=== PATIENT | male | born 1950 | race Caucasian/White ===

== ENCOUNTER 2018-06-19 12:32 | Inpatient (IN) | payer MEDICARE ==
[~2018-06-19] VITALS: Ht 175.3 cm; Wt 78.9 kg
[2018-06-19 12:39] VITALS: BP 173/78
[2018-06-19] MEDS ORDERED: ALLOPURINOL 10100 M1 PO (12:49)
[2018-06-19] MEDS ORDERED: SODIUM BICARBO650 M3 PO (12:49)
[2018-06-19 13:09] LABS: ABSOLUTE LYMPHOCYTES 0.4 thou/uL (0.8-5.3); ABSOLUTE MONOCYTES 0.3 thou/uL (0.0-1.2); ABSOLUTE NEUTROPHILS 2.3 thou/uL (1.6-8.1); BASOPHILS 0.2 %; EOSINOPHILS 0.6 %; HEMATOCRIT 32.8 % (42.0-52.0); LYMPHOCYTES 13.9 %; MCH 31.7 pg (26.0-34.0); MCHC 33.6 g/dL (28.0-37.0); MCV 94.3 fL (80.0-100.0); MONOCYTES 9.1 %; MPV 8.3 fl. (7.2-11.1); NUCLEATED RBCS 0 /100WBC; POLYS 76.2 %; RBC 3.48 mil/uL (4.50-6.00); RDW-CV 16.1 % (10.5-14.5)
[2018-06-19 13:14] LABS: PLATELET COUNT* 46 thou/uL (150-400)
[2018-06-19 13:18] LABS: APTT 29.8 Seconds (25.0-31.3); PROTIME 10.1 Seconds (9.20-11.50)
[2018-06-19 13:26] LABS: ANION GAP 5 mmol/L (7-16); BUN 14 mg/dL (7-18); CALCIUM 8.6 mg/dL (8.5-10.1); CHLORIDE 99 mmol/L (98-107); CO2 37 mmol/L (21-32); CREATININE 3.4 mg/dL (0.6-1.3); GLUCOSE 98 mg/dL (70-99); POTASSIUM 4.2 mmol/L (3.5-5.1); SODIUM 141 mmol/L (136-145); TROPONIN-I LEVEL 0.22 ng/mL (<0.06)
[2018-06-19 13:27] LABS: ALKALINE PHOSPHATASE 162 U/L (46-116); LIPASE 340 U/L (73-393); NT-PRO BRAIN NAT PEPTIDE > 35000 pg/mL (<300); SGOT 35 U/L (15-37); SGPT 16 U/L (30-65); TOTAL BILIRUBIN 0.5 mg/dL (<0.1-1.0); TOTAL PROTEIN 6.7 g/dL (6.4-8.2)
[2018-06-19 14:03] LABS: PLATELET ESTIMATE DECREASED
--- NOTE | 2018-06-19 16:04 | EKG ---
[place] [address] ELECTROCARDIOGRAM REPORT Name: ESE TRONCOSO Room: [place] [address] ADM IN [facility]#: [id number] Admission: 06/19/18 Attend Phys: Feliciano Chicas MD Discharge: Date of : 54 Report #: [id number] THIS REPORT FOR: //name// [facility] ED Test Date: 2018-06-19 Test Time: 12:38:28 Pat Name: ESE KARYNA Department: Room: [facility] Gender: M Repairer Helper: [place] : 1950 Requested By: Paolo Martin Order Number: [id number] MD: Cecilio Mohr Measurements Intervals [place] Rate: 82 P: 32 PA: 151 QRS: 1 QRSD: 90 T: -24 QT: 434 QTc: 507 Interpretive Statements Sinus rhythm Nonspecific repol abnormality, inferior leads Prolonged QT interval Baseline wander in lead(s) I,III,aVL No previous ECG available for comparison Electronically Signed On 06-19-2018 16:04:47 SALES REPRESENTATIVE [employer] by Cecilio Mohr [email or web address] <ELECTRONICALLY SIGNED> By: Cecilio Mohr MD, [facility] 06/19/18 1604 1238 1238 Cecilio Mohr MD, [facility] /EPI
[2018-06-19 18:09] LABS: INFLUENZA A ANTIGEN None Detected (None Detect); INFLUENZA B ANTIGEN None Detected (None Detect)
[2018-06-19 23:09] VITALS: BP 155/72
[2018-06-19 23:25] VITALS: BP 166/78
[2018-06-20] MEDS ORDERED: LEVEMIR SUBQ (03:35)
[2018-06-20] MEDS ORDERED: FOLIC ACID1 MG PO (03:35)
[2018-06-20] MEDS ORDERED: FISH OIL 1,001000 M2 PO (03:36)
[2018-06-20] MEDS ORDERED: SYNTHROID50 MCG PO (03:41)
[2018-06-20 04:14] VITALS: BP 188/78
[2018-06-20 05:41] LABS: ABSOLUTE LYMPHOCYTES 0.3 thou/uL (0.8-5.3); ABSOLUTE MONOCYTES 0.1 thou/uL (0.0-1.2); ABSOLUTE NEUTROPHILS 1.9 thou/uL (1.6-8.1); BASOPHILS 0.2 %; EOSINOPHILS 0.2 %; HEMATOCRIT 32.7 % (42.0-52.0); HEMOGLOBIN 10.8 gm/dL (14.0-18.0); LYMPHOCYTES 12.6 %; MCH 31.9 pg (26.0-34.0); MCHC 33.1 g/dL (28.0-37.0); MCV 96.3 fL (80.0-100.0); MONOCYTES 5.7 %; MPV 8.8 fl. (7.2-11.1); NUCLEATED RBCS 0 /100WBC; POLYS 81.3 %; RBC 3.39 mil/uL (4.50-6.00); RDW-CV 16.2 % (10.5-14.5); WBC 2.3 thou/uL (4.0-11.0)
[2018-06-20 06:14] LABS: CALCIUM 8.6 mg/dL (8.5-10.1); POTASSIUM 5.1 mmol/L (3.5-5.1)
[2018-06-20 06:20] LABS: PLATELET COUNT* 43 thou/uL (150-400)
[2018-06-20 06:21] LABS: CREATININE 4.7 mg/dL (0.6-1.3)
[2018-06-20 08:00] VITALS: BP 177/86
--- NOTE | 2018-06-20 09:45 | EKG ---
[place] [address] ELECTROCARDIOGRAM REPORT Name: ESE TRONCOSO Room: [address] IN R.#: [id number] Admission: 06/19/18 Attend Phys: Feliciano Chicas MD Discharge: Date of : 54 Report #: [id number] THIS REPORT FOR: //name// [facility] Test Date: 2018-06-20 Test Time: 08:37:17 Pat Name: ESE KARYNA Department: Room: [facility] Gender: M Natural Foods Clerk: : 1950 Requested By: Mary Adams Order Number: [id number] Blane MD: Cecilio Mohr Measurements Intervals [place] Rate: 82 P: 48 DE: 144 QRS: 0 QRSD: 94 T: -2 QT: 438 QTc: 512 Interpretive Statements Sinus rhythm Borderline T abnormalities, inferior leads Prolonged QT interval Compared to ECG 06/19/2018 12:38:28 no change Electronically Signed On 06-20-2018 9:44:52 PHARMACY DELIVERY DRIVER by Cecilio Mohr [email or web address] <ELECTRONICALLY SIGNED> By: Cecilio Mohr MD, [facility] 06/20/18 0944 0837 0837 Cecilio Mohr MD, [facility] /EPI
[2018-06-20 12:13] VITALS: BP 165/74
--- NOTE | 2018-06-20 14:43 | 2DMMODE ---
[place] [address] 2 D/M-MODE ECHOCARDIOGRAM Name: ESE TRONCOSO Room: [address] IN [facility]#: [id number] Admission: 06/19/18 Attend Phys: Feliciano Chicas, Discharge: Date of : 54 Date of Service: 06/20/18 1442 Report #: [id number] THIS REPORT FOR: //name// APPROVED REPORT Study performed: 06/20/2018 11:21:46 EXAM: Comprehensive 2D, Doppler, and color-flow Echocardiogram Patient Location: In-Patient Room #: 219 Status: routine BSA: 1.95 HR: 87 bpm BP: 177/86 mmHg Rhythm: NSR Other Information Study Quality: Good Indications CAD Elevated Troponin Chest Pain 2D Dimensions IVSd: 12.73 (7-11mm) LVOT Diam: 20.78 (18-24mm) LVDd: 49.92 mm PWd: 11.90 (7-11mm) Ascending Ao: 35.73 (22-36mm) LVDs: 30.00 (25-40mm) Aortic Root: 32.70 mm Volumes Left Atrial Volume (Systole) LA ESV Index: 39.40 mL/m2 Aortic Valve AoV Peak Eknneth.: 1.69 m/s AO Peak Gr.: 11.38 mmHg LVOT Max P.31 mmHg AO Mean Gr.: 5.99 mmHg LVOT Mean P.08 mmHg LVOT Max V: 1.26 m/s AO V2 VTI: 35.28 cm LVOT Mean V: 0.81 m/s LIONEL (VTI): 2.60 cm2 LVOT V1 VTI: 27.02 cm Mitral Valve E/A Ratio: 1.11 [place] [address] 2 D/M-MODE ECHOCARDIOGRAM Name: ESE TRONCOSO Room: [address] IN [facility]#: [id number] Admission: 06/19/18 Attend Phys: Feliciano Chicas, Discharge: Date of : 54 Date of Service: 06/20/18 1442 Report #: [id number] MV Decel. Time: 176.12 ms MV E Max Kenneth.: 1.62 m/s MV PHT: 51.07 ms MVA (PHT): 4.31 cm2 TDI E/Lateral E': 13.50 E/Medial E': 23.14 Medial E' Kenneth.: 0.07 m/s Lateral E' Kenneth.: 0.12 m/s Pulmonary Valve PV Peak Kenneth.: 1.23 m/s PV Peak Gr.: 6.01 mmHg Tricuspid Valve RAP Estimate: 5.00 mmHg TR Peak Gr.: 31.34 mmHg RVSP: 36.00 mmHg PA Pressure: 36.00 mmHg Left Ventricle The left ventricle is normal size. There is normal LV segmental wall motion. Mild concentric left ventricular hypertrophy. Left ventricular systolic function is normal. LVEF is 55-60%. Transmitral Doppler flow pattern suggests impaired LV relaxation. Right Ventricle The right ventricle is normal size. The right ventricular systolic function is normal. Atria Left atrium is mildly dilated. Right atrium is mildly dilated. Aortic Valve The aortic valve is normal in structure. No aortic regurgitation is present. There is no aortic valvular stenosis. Mitral Valve The mitral valve is normal in structure. There is no mitral valve regurgitation noted. No evidence of mitral valve stenosis. Tricuspid Valve The tricuspid valve is normal in structure. Trace tricuspid regurgitation. Mild pulmonary hypertension. Pulmonic Valve The pulmonary valve is normal [place] [address] 2 D/M-MODE ECHOCARDIOGRAM Name: ESE TRONCOSO Room: [address]#: [id number] Admission: 06/19/18 Attend Phys: Feliciano Chicas, Discharge: Date of : 54 Date of Service: 06/20/18 1442 Report #: [id number] regurgitation. Great Vessels The aortic root is normal in size. IVC is normal in size and collapses >50% with inspiration. Pericardium There is no pericardial effusion. <Conclusion> The left ventricle is normal size. Mild concentric left ventricular hypertrophy. Left ventricular systolic function is normal. LVEF is 55-60%. Left atrium is mildly dilated. Right atrium is mildly dilated. Trace tricuspid regurgitation. Mild pulmonary hypertension. IVC is normal in size and collapses >50% with inspiration. <ELECTRONICALLY SIGNED> By: Jovanny Hester MD, FACC 06/20/18 1442 144 1442 Jovanny Hester MD, FACC /INF
[2018-06-20 16:07] LABS: HEPATITIS B SURFACE AG Negative (Negative)
[2018-06-20 16:30] VITALS: BP 124/58
[2018-06-20 20:31] VITALS: BP 110/50
[2018-06-21] VITALS: BP 141/67
[2018-06-21 04:00] VITALS: BP 154/76
[2018-06-21 08:00] VITALS: BP 155/65
[2018-06-21 12:38] LABS: HEMATOCRIT 30.9 % (42.0-52.0); HEMOGLOBIN 10.6 gm/dL (14.0-18.0); MCH 32.3 pg (26.0-34.0); MCHC 34.4 g/dL (28.0-37.0); MCV 93.8 fL (80.0-100.0); MPV 8.1 fl. (7.2-11.1); NUCLEATED RBCS 0 /100WBC; PLATELET COUNT* 73 thou/uL (150-400); RBC 3.29 mil/uL (4.50-6.00); RDW-CV 16.1 % (10.5-14.5)
[2018-06-21 13:15] VITALS: BP 139/70
[2018-06-21 13:19] LABS: ABSOLUTE LYMPHOCYTES 0.9 thou/uL (0.8-5.3); ABSOLUTE MONOCYTES 0.2 thou/uL (0.0-1.2); ABSOLUTE NEUTROPHILS 3.9 thou/uL (1.6-8.1); ATYPICAL LYMPHS 1 %
[2018-06-21 13:20] LABS: PLATELET ESTIMATE DECREASED
--- NOTE | 2018-06-21 15:44 | CON ---
[address] [address] CONSULTATION Name: ESE TRONCOSO Room: [address] IN .[place].#: [id number] Admission: 06/19/18 Attend Phys: Feliciano Chicas MD Discharge: Date of : 54 Report #: [id number] THIS REPORT FOR: //name// CC: Feliciano Dasilva DATE OF SERVICE: 06/20/2018 HEMATOLOGY CONSULTATION REQUESTING PHYSICIAN: Feliciano Chicas M.D. REASON FOR CONSULTATION: Thrombocytopenia. HISTORY OF PRESENT ILLNESS: A 67-year-old male who has been admitted to the hospital because of weakness and fall with shortness of breath and chest pain. He has end-stage renal disease, diabetic. He had common cold symptoms including cough and runny nose. He denies any high fevers. Upon evaluation, his platelet count was 46,000. However, the patient reported that he was seen by Dr. Kelly, diesel locomotive firer, 3 weeks ago and his platelet count has been low even before. I reviewed his hemoglobin, which was around his baseline, which was around 10. The patient denies any change in his urine or diarrhea. He denies any seizure-like activity. No abdominal pain. REVIEW OF SYSTEMS: All systems reviewed; it was negative, except the above. PAST MEDICAL HISTORY: Significant for diabetes mellitus and end-stage renal disease, on dialysis. MEDICATIONS: Per admission list. ALLERGIES: PENICILLIN. SOCIAL HISTORY: No smoking, no alcohol abuse and no drug abuse. FAMILY HISTORY: Noncontributory. PHYSICAL EXAMINATION: VITAL SIGNS: Today, temperature 36.5, pulse 83, respirations 15, blood pressure is 177/86 and saturation is 99% on 2 liters. GENERAL: The patient was sitting in chair, was not in acute distress. LUNGS: Clear to auscultation bilaterally. HEART: Regular rate and rhythm. S1, S2 within normal limits. ABDOMEN: Soft, nontender and nondistended. Bowel sounds positive. EXTREMITIES: No edema, no [place] [address] CONSULTATION Name: ESE TRONCOSO Room: [address]#: [id number] Admission: 06/19/18 Attend Phys: Feliciano Chicas MD Discharge: Date of : 54 Report #: [id number] LABORATORY DATA: Today, WBC 2.3, hemoglobin 10.8 and platelet count 43,000. RBC morphology was normal. PT was 10.1, PTT 29.8. Creatinine is 4.7. ASSESSMENT AND PLAN: A 67-year-old male who is being evaluated because of unexplained thrombocytopenia. I would like to obtain his most recent labs around 3 weeks ago when he saw Dr. Kelly at the same time. The patient does not have any active bleeding right now. We will obtain peripheral blood smear, DIC profile, hemolysis lab including LDH, haptoglobin and retic count. The last time he had B12 and folate level back in 2004; we will obtain these levels also. We will monitor the patient very closely. The etiology could be related to viral infection. <ELECTRONICALLY SIGNED> By: María Billings MD 06/21/18 1544 0850 2212María Billings MD /nt
[2018-06-21] MEDS ORDERED: LEVAQUIN 500 M500 M2 PO (15:58)
[2018-06-21] MEDS ORDERED: NORCO 5-325 TA1 EACH PO (15:59)
[2018-06-21] MEDS ORDERED: PREDNISONE 10 M10 MG PO (16:00)
[2018-06-21] MEDS ORDERED: PROTONIX40 M1 PO (16:02)
[2018-06-21 16:04] VITALS: BP 139/70
[2018-06-21 16:49] VITALS: BP 117/45
--- NOTE | 2018-06-22 10:56 | CON ---
[address] [address] CONSULTATION Name: ESE TRONCOSO Room: [address]#: [id number] Admission: 06/19/18 Attend Phys: Feliciano Chicas MD Discharge: 06/21/18 Date of : 54 Report #: [id number] THIS REPORT FOR: //name// CC: Feliciano Dasilva DATE OF SERVICE: 06/20/2018 CONSULTING PHYSICIAN: Feliciano Chicas MD. REASON FOR CONSULTATION: End-stage kidney disease. HISTORY OF PRESENT ILLNESS: A 67-year-old gentleman with history of end-stage kidney disease on hemodialysis Tuesday, Tuesday and Tuesday at [facility] admitted with chest pain, some dyspnea and elevated troponin. Currently, has no complaints, appears to be comfortable, tells me his dialysis went well yesterday. He is currently being evaluated by Cardiology and also by Hematology/Oncology for thrombocytopenia/leukopenia. REVIEW OF SYSTEMS: Constitutional, psych, heme, eyes, ENT, respiratory, cardiac, GI, , endocrine, all negative except as documented above. PAST MEDICAL HISTORY: Diabetes, depression, end-stage kidney disease. SOCIAL HISTORY: No tobacco. FAMILY HISTORY: Not pertinent in this 67-year-old gentleman. CURRENT MEDICATIONS: Reviewed. PHYSICAL EXAMINATION: VITAL SIGNS: Blood pressure 177/86, pulse 83, respirations 15, temperature 36.5. GENERAL: No acute distress. EYES: Extraocular movements intact. EARS: Externally normal. CARDIOVASCULAR: Regular rate. LUNGS: No crackles. ABDOMEN: Soft. MUSCULOSKELETAL: Nontender. PSYCHIATRIC: Awake, alert. LABORATORY DATA: White cell count 2.3, hemoglobin 10.8, platelets 43. Sodium 142, potassium 5.1, chloride 101, bicarbonate 34, BUN 26, creatinine 4.7, glucose 196, calcium 8.6[place] [address] CONSULTATION Name: KARYNAESE L Room: [address]#: [id number] Admission: 06/19/18 Attend Phys: Feliciano Chicas MD Discharge: 06/21/18 Date of : 54 Report #: [id number] ASSESSMENT: 1. End-stage kidney disease, hemodialysis Tuesday, Tuesday and Tuesday at [facility]. 2. Thrombocytopenia. Hematology is following. 3. Insulin-dependent diabetes. 4. Metabolic acidosis, on sodium bicarbonate as an outpatient. 5. Gout, on allopurinol as an outpatient. 6. Hypertension. 7. Pneumonia, on IV antibiotics. 8. Hypothyroidism. PLAN: 1. No acute indications for dialysis today. We will plan dialysis tomorrow. 2. Cardiology has started Toprol for the elevated blood pressure. 3. Continue sodium bicarbonate. 4. We will follow for dialysis needs. 5. Dialysis tomorrow. Thank you for requesting my opinion in the care and management of this patient. <ELECTRONICALLY SIGNED> By: Sherry Pressley MD 06/22/18 1056 1152 0026Abihira Pressley MD /nt
== END 2018-06-21 16:15 | disposition home or self-care (01) | DRG 871 ==
LOC: M.ERS 12:32 → M.2W 14:44 → M.TBA-ER 14:44 → M.2W 23:08 → M.TBA-ER 06-20 08:25 → M.2W 06-20 08:25
PROVIDERS: Emergency Medicine Emergency Medical Services; Internal Medicine; ADMIT Internal Medicine
DX: A41.9 Sepsis, unspecified organism (principal); N18.6 End stage renal disease; J96.91 Respiratory failure, unspecified with hypoxia; J15.6 Pneumonia due to other Gram-negative bacteria; E87.2 Acidosis; D69.6 Thrombocytopenia, unspecified; E11.22 Type 2 diabetes mellitus with diabetic chronic kidney disease; M10.9 Gout, unspecified; E03.9 Hypothyroidism, unspecified; F32.9 Major depressive disorder, single episode, unspecified; S20.219A Contusion of unspecified front wall of thorax, initial encounter; X58.XXXA Exposure to other specified factors, initial encounter; Y93.89 Activity, other specified; Y92.89 Other specified places as the place of occurrence of the external cause; Y99.8 Other external cause status; Z99.2 Dependence on renal dialysis; Z79.899 Other long term (current) drug therapy; Z88.0 Allergy status to penicillin

== ENCOUNTER 2018-09-03 21:01 | Inpatient (IN) | payer MEDICARE ==
[~2018-09-03] VITALS: Ht 177.8 cm; Wt 78.0 kg
[~2018-09-03 21:01] MED LIST: ALLOPURINOL 10100 M1 PO; FISH OIL 1,001000 M2 PO; FOLIC ACID1 MG PO; LEVAQUIN 500 M500 M2 PO; LEVEMIR SUBQ; NORCO 5-325 TA1 EACH PO; PREDNISONE 10 M10 MG PO; PROTONIX40 M1 PO; SODIUM BICARBO650 M3 PO; SYNTHROID50 MCG PO
[2018-09-03 21:03] VITALS: BP 81/37
[2018-09-03 21:31] LABS: HEMATOCRIT 31.9 % (42.0-52.0); HEMOGLOBIN 10.7 gm/dL (14.0-18.0); MCH 33.8 pg (26.0-34.0); MCHC 33.5 g/dL (28.0-37.0); MCV 100.9 fL (80.0-100.0); MPV 9.4 fl. (7.2-11.1); NUCLEATED RBCS 0 /100WBC; PLATELET COUNT* 96 thou/uL (150-400); RBC 3.16 mil/uL (4.50-6.00); RDW-CV 16.5 % (10.5-14.5); WBC 7.2 thou/uL (4.0-11.0)
[2018-09-03] MEDS ORDERED: KLONOPIN0.5 MG PO (21:31)
[2018-09-03] MEDS ORDERED: VITAMIN D2000 UNIT PO (21:33)
[2018-09-03] MEDS ORDERED: ALLOPURINOL 10100 M2 PO (21:33)
[2018-09-03] MEDS ORDERED: VALIUM5 MG PO (21:34)
[2018-09-03] MEDS ORDERED: B12INJ IM (21:34)
[2018-09-03] MEDS ORDERED: ROPINIROLE HCL0.5 MG PO (21:35)
[2018-09-03] MEDS ORDERED: FOSRENOL500 MG PO (21:35)
[2018-09-03 21:36] LABS: ANION GAP 17 mmol/L (7-16); BUN 55 mg/dL (7-18); CHLORIDE 97 mmol/L (98-107); CO2 23 mmol/L (21-32); CREATININE 8.1 mg/dL (0.6-1.3); GLUCOSE 230 mg/dL (70-99); SODIUM 137 mmol/L (136-145)
[2018-09-03] MEDS ORDERED: ZOLOFT50 MG PO (21:36)
[2018-09-03] MEDS ORDERED: TUMS PO (21:36)
[2018-09-03] MEDS ORDERED: LANTHANUM CAR1000 MG PO (21:36)
[2018-09-03 21:37] LABS: APTT 28.7 Seconds (25.0-31.3); INR 1.1; PROTIME 10.8 Seconds (9.20-11.50)
[2018-09-03] MEDS ORDERED: HYDRALAZINE 10M10 MG PO (21:37)
[2018-09-03 21:39] LABS: POTASSIUM 7.3 mmol/L (3.5-5.1)
[2018-09-03 21:45] LABS: ALBUMIN 3.2 g/dL (3.4-5.0); ALKALINE PHOSPHATASE 331 U/L (46-116); LIPASE 407 U/L (73-393); SGOT 50 U/L (15-37); SGPT 54 U/L (30-65); TOTAL BILIRUBIN 1.2 mg/dL (<0.1-1.0); TROPONIN-I LEVEL <0.06 ng/mL (<0.06)
[2018-09-03 21:49] LABS: CALCIUM 8.4 mg/dL (8.5-10.1)
[2018-09-03 22:27] LABS: ABSOLUTE EOSINOPHILS 0.1 thou/uL (0.0-0.7); ABSOLUTE LYMPHOCYTES 0.4 thou/uL (0.8-5.3); ABSOLUTE MONOCYTES 0.3 thou/uL (0.0-1.2); ABSOLUTE NEUTROPHILS 6.5 thou/uL (1.6-8.1); METAMYELOCYTES 1 %
[2018-09-03 22:28] LABS: ANISOCYTOSIS 1+; GIANT PLATELETS OCCASIONAL; PLATELET ESTIMATE DECREASED
[2018-09-03 22:29] LABS: POLYCHROMASIA 1+
[2018-09-03 23:02] VITALS: BP 61/29
[2018-09-03 23:07] VITALS: BP 206/102
--- NOTE | 2018-09-03 23:11 | NUR ---
SEE CODE BLUE SHEET.
--- NOTE | 2018-09-03 23:11 | NUR ---
WAS ASSISTING PT WITH CLEANING UP AFTER USING THE BEDSIDE COMMODE. CALLED OUT TO NURSE, PT WAS LAYING ON THE BED, UNRESPONSIVE, CODE WAS CALLED. CHEST COMPRESSIONS STARTED
[2018-09-03 23:20] LABS: ABSOLUTE BASOPHILS 0.1 thou/uL (0.0-0.2); ABSOLUTE LYMPHOCYTES 1.2 thou/uL (0.8-5.3); ABSOLUTE MONOCYTES 0.9 thou/uL (0.0-1.2); ABSOLUTE NEUTROPHILS 7.2 thou/uL (1.6-8.1); BASOPHILS 0.8 %; EOSINOPHILS 0.4 %; HEMATOCRIT 33.4 % (42.0-52.0); HEMOGLOBIN 10.9 gm/dL (14.0-18.0); LYMPHOCYTES 13.2 %; MCH 33.8 pg (26.0-34.0); MCHC 32.6 g/dL (28.0-37.0); MCV 103.6 fL (80.0-100.0); MPV 9.5 fl. (7.2-11.1); NUCLEATED RBCS 0 /100WBC; PLATELET COUNT* 103 thou/uL (150-400); POLYS 76.6 %; RBC 3.23 mil/uL (4.50-6.00); RDW-CV 17.1 % (10.5-14.5); WBC 9.5 thou/uL (4.0-11.0)
[2018-09-03 23:31] LABS: CALCIUM 8.5 mg/dL (8.5-10.1); CREATININE 7.9 mg/dL (0.6-1.3)
[2018-09-03 23:32] LABS: POTASSIUM 7.3 mmol/L (3.5-5.1)
[2018-09-03 23:40] VITALS: BP 66/35
[2018-09-03 23:45] VITALS: BP 79/43
[2018-09-04] VITALS (62 sets, daily range): BP systolic 56–196; BP diastolic 33–98
[2018-09-04 00:12] LABS: BE -13.7 mmol/L (-2 to +3); PO2 113.3 mmHg (75.0-100.0)
[2018-09-04 00:19] LABS: PCO2 50.7 mmHg (35.0-45.0); pH 7.104 (7.340-7.450)
[2018-09-04 05:51] LABS: ABSOLUTE LYMPHOCYTES 0.2 thou/uL (0.8-5.3); ABSOLUTE MONOCYTES 0.5 thou/uL (0.0-1.2); ABSOLUTE NEUTROPHILS 4.2 thou/uL (1.6-8.1); BASOPHILS 0.4 %; EOSINOPHILS 0.2 %; HEMATOCRIT 26.9 % (42.0-52.0); HEMOGLOBIN 9.3 gm/dL (14.0-18.0); LYMPHOCYTES 4.2 %; MCH 34.2 pg (26.0-34.0); MCHC 34.4 g/dL (28.0-37.0); MCV 99.2 fL (80.0-100.0); MONOCYTES 10.4 %; MPV 8.6 fl. (7.2-11.1); NUCLEATED RBCS 0 /100WBC; PLATELET COUNT* 71 thou/uL (150-400); POLYS 84.8 %; RBC 2.72 mil/uL (4.50-6.00); RDW-CV 16.2 % (10.5-14.5); WBC 4.9 thou/uL (4.0-11.0)
[2018-09-04 06:12] LABS: APTT 31.7 Seconds (25.0-31.3); INR 1.1; PROTIME 11.7 Seconds (9.20-11.50)
[2018-09-04 06:26] LABS: CK-MB MASS 17.8 ng/mL (<0.5-3.6); MAGNESIUM 1.8 mg/dL (1.8-2.4); PHOSPHORUS* 5.7 mg/dL (2.5-4.9)
[2018-09-04 06:30] LABS: POTASSIUM 3.6 mmol/L (3.5-5.1)
[2018-09-04 06:32] LABS: TROPONIN-I LEVEL 2.89 ng/mL (<0.06)
--- NOTE | 2018-09-04 06:39 | NUR ---
ASSESSMENTS CHARTED. PATIENT ARRIVED ON UNIT FROM ED AT 2245. UPON ARRIVAL, PATIENT LOST PULSES AND ENTERED V TACH. PATIENT CODED AND COMPRESSIONS STARTED, SEE CODE SHEET FOR DETAILS. CODE ICE PROTOCOL INITIATED. MONITORS APPPLIED AND ALARMS SET. TRIVEDI SWITCHED TO TRIVEDI TEMP PROBE. COOLING DEVICE PLACED AND PATIENT COOLED TO 89.5 DEGREES. PATIENT BLOOD PRESSURES AND HEART RATE HAVE BEEN EXTREMELY LABILE. CURRENTLY TITRATING SEDATION AND PRESSORS TO KEEP HEMODYNAMIC STABILITY. PATIENT UNDERWENT DIALYSIS DURING SHIFT WITH NO FLUID TAKEN OFF. AWAITING LABS TO RETURN WITH UPDATED CHEMISTRY LEVELS. ON ARRIVAL POTASSIUM LEVEL WAS 7.3. CONSULTED WITH NEPHROLOGY, CARDIOLOGY, AND PULMONARY. ALL CONSULTS WILL SEE PATIENT DURING DAY SHIFT ROUTINE. WILL CONTINUE TO MONITOR
[2018-09-04 09:35] LABS: BE 1.5 mmol/L (-2 to +3); pH 7.479 (7.340-7.450)
[2018-09-04 09:40] LABS: PO2 197.4 mmHg (75.0-100.0)
--- NOTE | 2018-09-04 10:59 | NUR ---
Nutrition: Consult received for "other." Pt admitted in cardiac arrest, will rewarm tonight. Wt: 180#. H/o DM, HD. Had dialysis. Labs: BG 200s, BUN 27, cr 4, albumin 3.2. NPO status. Will follow POC. Will make nutrition recs as needed. GOAL: Renal diet once able. Will follow up 09/06/18.
--- NOTE | 2018-09-04 11:43 | EKG ---
[place] [address] ELECTROCARDIOGRAM REPORT Name: ESE TRONCOSO Room: [address] ADM IN .R.#: [id number] Admission: 09/03/18 Attend Phys: Nathalie Baird MD Discharge: Date of : 54 Report #: [id number] THIS REPORT FOR: //name// [facility] ED Test Date: 2018-09-03 Test Time: 21:04:35 Pat Name: ESE TRONCOSO Department: Room: [facility] Gender: M Production Clerk: Saima ONTIVEROS : 1950 Requested By: Gabe Fraknlin Order Number: [id number] MD: Cecilio Mohr Measurements Intervals [place] Rate: 90 P: 51 CT: 165 QRS: 12 QRSD: 112 T: 81 QT: 400 QTc: 490 Interpretive Statements Sinus rhythm Borderline intraventricular conduction delay Repol abnrm suggests ischemia, anterolateral Compared to ECG 06/20/2018 08:37:17 Early repolarization now present Possible ischemia now present T-wave abnormality no longer present Prolonged QT interval no longer present Electronically Signed On 09-04-2018 11:42:53 CDT by Cecilio Mohr [email or web address] <ELECTRONICALLY SIGNED> By: Cecilio Mohr MD, FACC 09/04/18 1142 03 03 Cecilio Mohr MD, FAC /EPI
[2018-09-04 11:48] LABS: URINE BILIRUBIN NEGATIVE (Negative); URINE BLOOD 3+ (Negative); URINE CLARITY CLEAR; URINE COLOR YELLOW; URINE GLUCOSE-RANDOM 2+ (Negative); URINE KETONES NEGATIVE (Negative); URINE LEUKOCYTES-REFLEX NEGATIVE (Negative); URINE NITRITE-REFLEX NEGATIVE (Negative); URINE PROTEIN 3+ (Negative); URINE SPECIFIC GRAVITY 1.015 (1.005-1.030); URINE UROBILINOGEN 0.2 E.U./dl (0.2-1.0)
[2018-09-04 11:52] LABS: ABSOLUTE LYMPHOCYTES 0.5 thou/uL (0.8-5.3); ABSOLUTE MONOCYTES 0.4 thou/uL (0.0-1.2); ABSOLUTE NEUTROPHILS 3.2 thou/uL (1.6-8.1); BASOPHILS 0.5 %; EOSINOPHILS 0.7 %; HEMATOCRIT 28.1 % (42.0-52.0); HEMOGLOBIN 9.7 gm/dL (14.0-18.0); LYMPHOCYTES 11.2 %; MCHC 34.6 g/dL (28.0-37.0); MCV 98.4 fL (80.0-100.0); MONOCYTES 9.5 %; MPV 8.6 fl. (7.2-11.1); NUCLEATED RBCS 0 /100WBC; PLATELET COUNT* 86 thou/uL (150-400); POLYS 78.1 %; RBC 2.86 mil/uL (4.50-6.00); RDW-CV 16.1 % (10.5-14.5); WBC 4.1 thou/uL (4.0-11.0)
[2018-09-04 11:57] LABS: BACTERIA-REFLEX 1-9 Few /HPF (None Seen); CASTS None Seen /LPF (None Seen); CRYSTALS None Seen /LPF (None Seen); MUCUS 4-6 Moderate strn/LPF (None Seen); SQUAMOUS 0-3 Few /LPF (0-3); URINE WBC-REFLEX 0-5 Rare /HPF (0-5)
[2018-09-04 12:12] LABS: CREATININE 4.4 mg/dL (0.6-1.3); MAGNESIUM 1.8 mg/dL (1.8-2.4); PHOSPHORUS* 5.6 mg/dL (2.5-4.9); POTASSIUM 3.8 mmol/L (3.5-5.1)
[2018-09-04 12:20] LABS: INR 1.2
[2018-09-04 12:23] LABS: TROPONIN-I LEVEL 4.79 ng/mL (<0.06)
--- NOTE | 2018-09-04 13:14 | NUR ---
PATIENT REMAINS ON VENT BP LABILE LEVOPHED TITRATED FROM ONE TO 3 MCG/KG PER MIN. APPEARS COMFORTYABLE ON PROPOFOL AND FENTANYL GTT. COOLING ACHIEVED. PT PRODUCING SCANT YELLOW URINE.
[2018-09-04 14:09] LABS: HEPATITIS B SURFACE AG Negative (Negative)
--- NOTE | 2018-09-04 16:24 | NUR ---
WOUND NURSE: PER STAFF NURSE, WOUND CONSULT TRIGGERED BY LOW DIONICIO SCALE. NO WOUNDS TO ADDRESS. PATIENT NOT ASSESSED BY THIS NURSE A RESULT.
--- NOTE | 2018-09-04 18:51 | NUR ---
PATIENT REMAINS ON VENT LEVOPHED LEFT AT 2 MCG BP LABILE. NO BLEEDING NOTED PHILLIP AT BEDSIDE. AWAITING RECORDS FROM [facility]. DPOA COPY FROM DR OFFICE OBTAINED. REPORT GIVEN TO KHURRAM RUTLEDGE.
[2018-09-04 23:32] LABS: ABSOLUTE LYMPHOCYTES 0.6 thou/uL (0.8-5.3); ABSOLUTE MONOCYTES 0.4 thou/uL (0.0-1.2); ABSOLUTE NEUTROPHILS 2.4 thou/uL (1.6-8.1); BASOPHILS 0.8 %; EOSINOPHILS 0.8 %; HEMATOCRIT 29.3 % (42.0-52.0); HEMOGLOBIN 10.1 gm/dL (14.0-18.0); LYMPHOCYTES 16.2 %; MCHC 34.6 g/dL (28.0-37.0); MCV 98.2 fL (80.0-100.0); MONOCYTES 10.7 %; MPV 9.1 fl. (7.2-11.1); NUCLEATED RBCS 0 /100WBC; PLATELET COUNT* 81 thou/uL (150-400); POLYS 71.5 %; RBC 2.99 mil/uL (4.50-6.00); WBC 3.4 thou/uL (4.0-11.0)
[2018-09-04 23:50] LABS: APTT 32.7 Seconds (25.0-31.3); INR 1.2; PROTIME 12.5 Seconds (9.20-11.50)
[2018-09-04 23:56] LABS: CALCIUM 8.5 mg/dL (8.5-10.1); CREATININE 4.7 mg/dL (0.6-1.3); MAGNESIUM 1.7 mg/dL (1.8-2.4); PHOSPHORUS* 5.9 mg/dL (2.5-4.9); POTASSIUM 4.6 mmol/L (3.5-5.1)
[2018-09-05] VITALS (65 sets, daily range): BP systolic 50–193; BP diastolic 30–80
[2018-09-05 04:48] LABS: BE 0.9 mmol/L (-2 to +3); PCO2 38.3 mmHg (35.0-45.0); pH 7.434 (7.340-7.450)
[2018-09-05 04:52] LABS: PO2 166.5 mmHg (75.0-100.0)
[2018-09-05 05:22] LABS: HEMATOCRIT 30.6 % (42.0-52.0); HEMOGLOBIN 10.4 gm/dL (14.0-18.0); MCH 33.3 pg (26.0-34.0); MCHC 33.9 g/dL (28.0-37.0); MCV 98.2 fL (80.0-100.0); NUCLEATED RBCS 0 /100WBC; PLATELET COUNT* 105 thou/uL (150-400); RBC 3.11 mil/uL (4.50-6.00); RDW-CV 16.6 % (10.5-14.5); WBC 4.1 thou/uL (4.0-11.0)
[2018-09-05 05:38] LABS: ANION GAP 10 mmol/L (7-16); BUN 33 mg/dL (7-18); CHLORIDE 98 mmol/L (98-107); CHOLESTEROL 102 mg/dL (<200); CO2 27 mmol/L (21-32); GLUCOSE 146 mg/dL (70-99); HDL CHOLESTEROL 9 mg/dL (>40); LDL CHOLESTEROL 30 mg/dL (<100); POTASSIUM 4.5 mmol/L (3.5-5.1); SODIUM 135 mmol/L (136-145); TC:HDL 11.3 Ratio (Not establshd); TRIGLYCERIDE 318 mg/dL (<150); VLDL 64 mg/dL (<40)
[2018-09-05 05:58] LABS: SERUM ASSESSMENT Slight Lipemia
[2018-09-05 06:52] LABS: ABSOLUTE LYMPHOCYTES 0.7 thou/uL (0.8-5.3); ABSOLUTE NEUTROPHILS 3.4 thou/uL (1.6-8.1); ATYPICAL LYMPHS 8 %; MYELOCYTES 1 %; PLATELET ESTIMATE ADEQUATE
--- NOTE | 2018-09-05 06:57 | NUR ---
PT REMAINS STABLE ON VENT. REWARMING INITIATED AT 2330, CURRENT CORE TEMP 96.8F. TEMP LABILE DURING REWARMING, RISING AND FALLING BY 1-2 DEGREES WITHIN SHORT PERIODS OF TIME, THEN NOT RESPONDING TO ADJUSTMENTS TO TEMP CONTROL SYSTEM FOR EXTENDED TIMES. BP ALSO LABILE, BOTH IN RESPONSE TO LEVOPHED TITRATION AND WITH NO APPARENT CAUSE. SEDATION TITRATED FOR COMFORT AND VENT EFFICACY. WITH LIGHT SEDATION PT MOVED ALL EXTREMITIES EQUALLY, TRACKED WITH EYES, AND SHOOK HEAD WHEN ASKED IF HE IS IN PAIN. INCONTINENT OF LARGE SOFT BM X1. PT HAS BEEN TURNED Q2HR THROUGHOUT THE NIGHT.
--- NOTE | 2018-09-05 07:24 | CON ---
[facility] [address] [place] [address] CONSULTATION Name: ESE TRONCOSO Room: [address] IN M.R.#: [id number] Admission: 09/03/18 Attend Phys: Nathalie Baird MD Discharge: Date of : 54 Report #: [id number] THIS REPORT FOR: //name// CC: Nathalie Dasilva REQUESTING PHYSICIAN: Feliciano Chicas M.D. REASON FOR CONSULTATION: Acute respiratory failure, status post cardiopulmonary arrest, on ventilator. DISCUSSION: The patient is a 67-year-old man who is a nonsmoker. Based on the information we have here, he does not have any history of any underlying lung disease. He does have a history of end-stage renal disease and is on chronic hemodialysis. He was brought to the Emergency Department following a syncopal episode at home. Notes indicate he has had a significant headache all day with increasing weakness. He has fallen to the ground. EMS was called. According to the notes, he was awake en route. He was seen in the Emergency Department. Labs came back markedly abnormal. He does have a chronic kidney disease and on chronic hemodialysis. His potassium also came back very high. While he was in the Emergency Department, he did have a cardiac arrest with PEA. We have had already been underway for emergent dialysis to be done. He was resuscitated in the ED. He was intubated and also had a central line in place. Subsequently, he was transferred over to the Intensive Care Unit. Does appear once he arrived in the ICU, he arrested again and again was resuscitated. He did receive dialysis. It did help lower his potassium level. At one point, he was on several pressors, was down to just Levophed at the time of my visit this morning. His oxygenation was also adequate. Given the circumstances, also the cooling protocol was started and he was in the process of being cold when I saw him this morning. He is a lifelong nonsmoker. He is on chronic hemodialysis. Does have a history of diabetes mellitus type 2. Had sepsis due to gangrenous cholecystitis, some years back. Did have a cardiopulmonary arrest during that time as well. Subsequently, he did have a cholecystectomy done. SOCIAL HISTORY: He is a nonsmoker. He is . FAMILY HISTORY: Unable to obtain from the patient. REVIEW OF SYSTEMS: Unable to obtain from the patient. PHYSICAL EXAMINATION: GENERAL APPEARANCE: A man who looks stated age. He is currently intubated and sedated. Currently, he is on Levophed and the epinephrine is off. He has the cooling apparatus on. HEENT: Head is normocephalic. Sclerae nonicteric[place] [address] CONSULTATION Name: ESE TRONCOSO Room: [address] IN ..#: [id number] Admission: 09/03/18 Attend Phys: Nathalie Baird MD Discharge: Date of : 54 Report #: [id number] little dry. NECK: Negative for adenopathy. No definite JVDs appreciated. HEART: Tones are distant but appear regular. No S3 is appreciated. LUNGS: Sounds are coarse. He has some rhonchi heard bilaterally. Excursion is equal. No subcutaneous emphysema is noted. ABDOMEN: Soft. No definite hepatosplenomegaly is noted. EXTREMITIES: Has no clubbing. He has a shunt present in his right upper extremity. Lower extremities are negative for any significant edema. SKIN: Somewhat cool. NEUROLOGICAL: Currently, he is unresponsive and sedated. His propofol, Versed and fentanyl going. LABORATORY AND X-RAY FINDINGS: His most recent arterial blood gas this morning, pH was 7.48, pCO2 of 34, pO2 197 and bicarbonate 25 with a saturation of 98%. Blood gases done post-code, pH was 7.10, pCO2 of 51 and pO2 of 113. His bicarbonate was 16. On his initial chemistry on admission here yesterday evening, his potassium was 7.3. This morning it is down to 3.8 (after dialysis). Creatinine last night 8.1, down to 4.4 this morning. Serum bicarbonate down to 21 back up to 26 this morning. Troponin last night was undetectable. This morning up to 4.79. White blood cell count 4100; hemoglobin 9.7; hematocrit 28.1 and platelets 86,000. He did have an echocardiogram done in May of this year. At that time, EF was normal, 55%-60%. Did have mild concentric LVH. Mild pulmonary hypertension. IMPRESSION: 1. Status post cardiopulmonary arrest. Pulseless electrical activity. Have been related to his marked hyperkalemia. Has been successfully resuscitated. Currently, he is on a cooling protocol. 2. End-stage renal disease, on chronic hemodialysis. 3. Thrombocytopenia, noted previously. Etiology not clear. 3. Chronic anemia. May be anemia of chronic disease. 4. Diabetes mellitus. RECOMMENDATIONS: 1. Continue support at this time. I will need to wait and see how the next 24 hours go. Once he is warmed up, we will need to have his mental status assessed. 2. Dialysis per Renal Service. 3. We will continue with empiric antibiotics at this time. 4. We will try to wean off the Versed. Use propofol and fentanyl as needed at this time. P.r.n. paralytics if needed for shivering. <ELECTRONICALLY SIGNED> By: Cate Javed MD 09/05/18 0724 1258 0630Cate Javed MD /nt
--- NOTE | 2018-09-05 08:58 | CON ---
[address] [address] CONSULTATION Name: ESE TRONCOSO Room: [address] IN [facility]#: [id number] Admission: 09/03/18 Attend Phys: Nathalie Baird MD Discharge: Date of : 54 Report #: [id number] THIS REPORT FOR: //name// CC: Nathalie Dasilva DATE OF SERVICE: 09/04/2018 REQUESTING PHYSICIAN: Feliciano Chicas MD. REASON FOR CONSULTATION: Thrombocytopenia. SUBJECTIVE: A 67-year-old male who had past medical history of end-stage renal disease, gout, hypothyroidism, hypertension, who had syncopal episodes and had PEA arrest. The patient resuscitated, intubated and currently on the ventilator with hypothermia protocol. The patient, at this point, is sedated. is at bedside. Hematological consultation has been requested due to thrombocytopenia, which the patient upon admission had a platelet count of 96; however, later today, it was 86. Reviewing his prior records in 05/2018, his platelet counts were 43 and back in 2004, it was 250. Per the nursing staff, there was no evidence of bleeding or oozing from the IV sites. REVIEW OF SYSTEMS: Unable to be obtained. PAST MEDICAL HISTORY: Diabetes, end-stage renal disease, depression, hypothyroidism, hypertension. MEDICATIONS: Per admission list. ALLERGIES: PENICILLIN. FAMILY HISTORY: Noncontributory. SOCIAL HISTORY: No smoking, no alcohol abuse, no drug abuse. PHYSICAL EXAMINATION: VITAL SIGNS: Today, temperature is 32.5 during hypothermia protocol, pulse is 45, respirations 14, blood pressure is 102/46, SpO2 was 100% on the ventilator. HEENT: The patient was intubated, sedated. LUNGS: Decreased breathing sounds bilaterally. HEART: Luiz, but regular. S1, S2 within normal limits. ABDOMEN: Soft, nondistended. EXTREMITIES: No edema, no cyanosis, no clubbing. LABORATORY DATA: Today, WBC 4.1, hemoglobin 9.7, platelets 86. Coagulation studies: PT elevated 12, PTT 32, fibrinogen 480, D-dimer elevated at 5.9, [place] [address] CONSULTATION Name: ESE TRONCOSO Dian Room: [address]#: [id number] Admission: 09/03/18 Attend Phys: Nathalie Baird MD Discharge: Date of : 54 Report #: [id number] creatinine 4.4, bilirubin is 1.2. Troponin 4.7. IMAGING: CT head showed no evidence of intracranial bleed. Chest x-ray showed peripheral infiltrates with ET tube. Abdominal x-ray showed gastric tube with the tip and side port overlying the stomach. Abnormal bowel gas pattern of which paralytic ileus is favored. ASSESSMENT AND PLAN: A 67-year-old male who has been evaluated in the ICU after he had PEA. He underwent CPR. Currently, he is intubated and sedated on pressors and hypothermia protocol. The patient had moderate thrombocytopenia. At this point, the etiology most related to DIC. He had elevation of his PT and PTT and D-dimer. Fibrinogen is elevated as acute phase reactants. At this point, since the patient does not have any active bleeding, recommend to continue serial DIC profile, which will be done every 12 hours. Discussed the prognosis with at the bedside. The patient is critically ill at this point. <ELECTRONICALLY SIGNED> By: María Billings MD 09/05/18 0858 1751 [id number] Billings MD /nt
--- NOTE | 2018-09-05 15:47 | NUR ---
WOUND CARE NOTE: PT SEEN FOR LOW DIONICIOLEONOR PTS BED FOR LOW AIRLOSS FUNCTION. IT IS ON. SPOKE TO PTS NURSE. PLEASE CALL WOUND NURSE FOR ANY OTHER CONCERNS.
[2018-09-05 17:32] LABS: BE -1.9 mmol/L (-2 to +3)
[2018-09-05 17:35] LABS: PCO2 52.9 mmHg (35.0-45.0); pH 7.297 (7.340-7.450)
[2018-09-06] VITALS (39 sets, daily range): BP systolic 73–161; BP diastolic 27–73
[2018-09-06 03:47] LABS: ABSOLUTE LYMPHOCYTES 0.7 thou/uL (0.8-5.3); ABSOLUTE MONOCYTES 0.8 thou/uL (0.0-1.2); ABSOLUTE NEUTROPHILS 5.3 thou/uL (1.6-8.1); BASOPHILS 0.5 %; EOSINOPHILS 0.6 %; HEMATOCRIT 32.8 % (42.0-52.0); HEMOGLOBIN 10.9 gm/dL (14.0-18.0); LYMPHOCYTES 10.3 %; MCH 32.7 pg (26.0-34.0); MCHC 33.2 g/dL (28.0-37.0); MCV 98.5 fL (80.0-100.0); MONOCYTES 12.1 %; MPV 8.7 fl. (7.2-11.1); NUCLEATED RBCS 0 /100WBC; PLATELET COUNT* 135 thou/uL (150-400); POLYS 76.5 %; RBC 3.33 mil/uL (4.50-6.00); RDW-CV 16.2 % (10.5-14.5)
[2018-09-06 04:01] LABS: ALBUMIN 2.4 g/dL (3.4-5.0); CALCIUM 8.8 mg/dL (8.5-10.1); CREATININE 4.9 mg/dL (0.6-1.3); POTASSIUM 5.1 mmol/L (3.5-5.1); TOTAL BILIRUBIN 1.4 mg/dL (<0.1-1.0)
--- NOTE | 2018-09-06 06:00 | NUR ---
STABLE ON VENT. FENTANYL GTT TITRATED OFF AT 0530 IN PREPARATION FOR WEANING TRIAL THIS AM. PT IS DROWSY BUT EASILY AROUSABLE, FOLLOWS COMMANDS AND COMMUNICATES VIA PEN AND PAPER. LEVOPHED GTT TITRATED FOR MAP >65. COMPLETE BED BATH GIVEN, HAIR SHAMPOOED. PT HAS BEEN TURNED Q2HR THROUGHOUT THE NIGHT.
[2018-09-06 08:50] LABS: BE -0.4 mmol/L (-2 to +3); PO2 93.5 mmHg (75.0-100.0)
[2018-09-06 08:53] LABS: PCO2 61.8 mmHg (35.0-45.0); pH 7.268 (7.340-7.450)
--- NOTE | 2018-09-06 10:30 | NUR ---
PT ADMITTED 09/03, REMAINS ON VENT. SPOKE WITH IN ROOM, PT ALERT AND FOLLOWING CONVERSATION. PT LIVES AT HOME WITH AND SON. PT HAS BEEN ON HEMODIALYSIS FOR ABOUT 3 YEARS, HE DRIVES HIMSELF TO DIALYSIS. HE HAS A WALKER AT HOME IF HE NEEDS IT. WORKS DURING THE DAY, SON GOES TO WORK IN THE AFTERNOON. PLANS ON PT RETURNING HOME AT DISCHARGE,FAMILY WOULD BE WITH HIM ALL THE TIME AND CAN BE AVAILABLE TO GET PATIENT TO AND FROM DIALYSIS. DISCUSSED ROLE OF CASE MGT, WILL CONTINUE TO FOLLOW.
[2018-09-06 16:06] LABS: BE 1.7 mmol/L (-2 to +3); PO2 113.6 mmHg (75.0-100.0); pH 7.358 (7.340-7.450)
[2018-09-06 16:14] LABS: PCO2 50.6 mmHg (35.0-45.0)
--- NOTE | 2018-09-06 16:40 | CON ---
[address] [address] CONSULTATION Name: ESE TRONCOSO Room: [address] IN .R.#: [id number] Admission: 09/03/18 Attend Phys: Nathalie Baird MD Discharge: Date of : 54 Report #: [id number] THIS REPORT FOR: //name// CC: Nathalie Dasilva DATE OF SERVICE: 09/04/2018 HISTORY OF PRESENT ILLNESS: The patient is a 67-year-old male who I was asked to see in ICU today after he apparently had a respiratory arrest. The history is obtained from some old records as well as the patient's who I spoke to. The patient is currently intubated on the ventilator. Apparently 20 years ago, the patient underwent 4-vessel coronary artery bypass surgery at [facility]. He was seen by Dr. Kuo at that time and complained of exertional dyspnea and was found to have multivessel coronary artery disease. He has done well from a heart standpoint since that time. He stays fairly active, going for walks. He developed progressive renal insufficiency and developed end-stage renal disease 2 years ago and has been on hemodialysis. He has a fistula in his right arm and goes to dialysis 3 days a week. Apparently, this past year, he has had recurrent syncope. He was admitted twice to [facility] after he passed out at home. He has had an extensive evaluation. No cause of his syncope was discovered. He was doing well until last evening. He was at home in the bathroom when he fell to the ground. His picked him up off the ground. He then stood up, but apparently fell to the ground again. She called the ambulance and he was brought here to [facility]. In the Emergency Room, he went to the bathroom and apparently had another syncopal spell. He was found to have a regular rhythm, but no pulse. He is felt to have pulseless electrical activity. He was admitted to the ICU. In the ICU, he apparently had another episode of pulseless electrical activity and had to be intubated. Code ice was initiated and I was asked to see him for further evaluation and treatment. He developed hypotension, was placed on intravenous Levophed. According to , he has had no recent shortness of breath, chest pain, palpitations. 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 He has a history of hypertension. He has had previous cholecystectomy. He has diabetes. MEDICATIONS: On admission consisted of allopurinol, Klonopin, Valium, hydralazine, Synthroid, Protonix, Zoloft. ALLERGIES: HE HAS AN ALLERGY TO PENICILLIN. FAMILY HISTORY: [place] [address] CONSULTATION Name: ESE TRONCOSO Room: [address] IN .#: [id number] Admission: 09/03/18 Attend Phys: Nathalie Baird MD Discharge: Date of : 54 Report #: [id number] SOCIAL HISTORY: He is . He and his live in [place]. Quit smoking years ago. No alcohol abuse. REVIEW OF SYSTEMS: He has had no previous history of stroke, asthma, peptic ulcer disease, liver disease, psychiatric illness or chronic skin condition. PHYSICAL EXAMINATION: GENERAL: Revealed a middle-aged male, lying in bed on the ventilator. VITAL SIGNS: Currently, he has a blood pressure of 160/80, pulse is 70. He is afebrile. HEENT: He was anicteric. Conjunctivae pink. Mucous membranes were moist. NECK: Veins do not appear distended. CHEST: Clear to auscultation. CARDIOVASCULAR: Regular rate and rhythm. ABDOMEN: Soft. EXTREMITIES: Had no edema. SKIN: Warm and dry. NEUROLOGIC: He is unresponsive to painful stimuli. LABORATORY DATA: ECG showed a sinus rhythm, nonspecific ST and T-wave changes. His workup, the patient had an echocardiogram in May that showed ejection fraction 60%, biatrial enlargement. His workup yesterday, he had a CT scan of the head that showed only atrophy, microvascular disease, evidence of sinusitis. His lab work yesterday, sodium 137, BUN 27, creatinine 4.0. His potassium when he was admitted last night was 7.3, glucose 221. His liver function studies were normal. Albumin 3.2. Troponin this morning is 2.89. His white blood cell count 4.9, hemoglobin 9.3. IMPRESSION AND RECOMMENDATIONS: 1. Respiratory arrest. The patient currently intubated. 2. Type 2 myocardial infarction related to oxygen supply demand mismatch. 3. Previous coronary artery bypass surgery. 4. Recurrent syncope. Consider discharging the patient with an event recorder. 5. Respiratory failure. The patient on ventilator. 6. End-stage renal disease. The patient on dialysis. 7. Diabetes. 8. Hypertension. I would wean off pressors at this time. <ELECTRONICALLY SIGNED> By: Cecilio Mohr MD, [facility] 09/06/18 1640 0919 [id number] Mohr MD, FACC /nt
--- NOTE | 2018-09-06 17:47 | NUR ---
PT ASSESSMENT CHARTED. ART LINE REMOVED PER ORDER. BP STABLE WITH LEVOPHED. DIALYSIS TODAY. EXTUBATED AT 1645. PT AWAKE THROUGHOUT THE DAY. IF PATIENT BECAME DROWSY HE IS EASILY AROUSABLE. PRIOR TO EXTUBATION PATIENT CALM, FREE FROM PAIN, AND ANSWERING QUESTIONS APPROPRIATELY. PATIENT CURRENTLY ON BIPAP AND TOLERATING WITHOUT DIFFICULTY. PATIENT HAS REMAINED FULLY AWAKE AND ALERT ANSWERING QUESTIONS POST EXTUBATION. NO FEVERS.
[2018-09-07] VITALS (60 sets, daily range): BP systolic 60–213; BP diastolic 26–90
[2018-09-07 04:55] LABS: ABSOLUTE EOSINOPHILS 0.1 thou/uL (0.0-0.7); ABSOLUTE LYMPHOCYTES 0.5 thou/uL (0.8-5.3); ABSOLUTE MONOCYTES 0.6 thou/uL (0.0-1.2); ABSOLUTE NEUTROPHILS 3.1 thou/uL (1.6-8.1); BASOPHILS 0.7 %; EOSINOPHILS 2.4 %; HEMATOCRIT 27.9 % (42.0-52.0); HEMOGLOBIN 9.5 gm/dL (14.0-18.0); LYMPHOCYTES 11.7 %; MCH 33.5 pg (26.0-34.0); MCHC 34.1 g/dL (28.0-37.0); MCV 98.4 fL (80.0-100.0); MPV 8.4 fl. (7.2-11.1); NUCLEATED RBCS 0 /100WBC; PLATELET COUNT* 96 thou/uL (150-400); POLYS 71.2 %; RBC 2.84 mil/uL (4.50-6.00); RDW-CV 16.1 % (10.5-14.5); WBC 4.4 thou/uL (4.0-11.0)
[2018-09-07 05:08] LABS: PREALBUMIN 12.4 mg/dL (18.0-35.7)
[2018-09-07 05:10] LABS: ALBUMIN 2.3 g/dL (3.4-5.0); CALCIUM 8.9 mg/dL (8.5-10.1); CREATININE 4.2 mg/dL (0.6-1.3); POTASSIUM 4.3 mmol/L (3.5-5.1); TOTAL BILIRUBIN 1.2 mg/dL (<0.1-1.0); TOTAL PROTEIN 5.8 g/dL (6.4-8.2)
--- NOTE | 2018-09-07 06:31 | NUR ---
ASSESSMENT CHARTED. PATIENT COMFORTABLE ON NASAL CANULA AT 2 L. O2 SATS HAVE STAYED ABOVE 90% ALL SHIFT. ATTEMPTED TO TITRATED DOWN LEVOPHED. CURRENTLY RUNNING AT 4. PATIENT BLOOD PRESSURES HAVE BEEN SENSITIVE TO ANY CHANGE IN LEVOPHED RATE. PATIENT IS A&OX4 AND IS AGREEABLE TO CARE. WILL CONTINUE TO MONITOR.
--- NOTE | 2018-09-07 14:32 | 2DMMODE ---
[place] [address] 2 D/M-MODE ECHOCARDIOGRAM Name: ESE TRONCOSO Room: [address] IN [facility]#: [id number] Admission: 09/03/18 Attend Phys: Nathalie Baird, Discharge: Date of : 54 Date of Service: 09/07/18 1432 Report #: [id number] THIS REPORT FOR: //name// APPROVED REPORT Study performed: 09/07/2018 10:33:46 EXAM: Comprehensive 2D, Doppler, and color-flow Echocardiogram Patient Location: In-Patient Room #: 003 Status: routine BSA: 2.01 HR: 77 bpm Rhythm: NSR Other Information Study Quality: Good Indications Syncope Elevated Troponin 2D Dimensions IVSd: 13.07 (7-11mm) LVOT Diam: 20.42 (18-24mm) LVDd: 46.21 mm PWd: 11.56 (7-11mm) Ascending Ao: 34.16 (22-36mm) LVDs: 28.96 (25-40mm) Aortic Root: 32.32 mm Volumes Left Atrial Volume (Systole) LA ESV Index: 31.60 mL/m2 Aortic Valve AoV Peak Kenneth.: 1.59 m/s AO Peak Gr.: 10.10 mmHg LVOT Max P.38 mmHg AO Mean Gr.: 5.88 mmHg LVOT Mean P.49 mmHg LVOT Max V: 1.45 m/s AO V2 VTI: 30.37 cm LVOT Mean V: 0.83 m/s LIONEL (VTI): 3.27 cm2 LVOT V1 VTI: 30.30 cm Mitral Valve E/A Ratio: 0.92 MV Decel. Time: 258.99 [place] [address] 2 D/M-MODE ECHOCARDIOGRAM Name: ESE TRONCOSO Room: [address] IN ..#: [id number] Admission: 09/03/18 Attend Phys: Nathalie Baird, Discharge: Date of : 54 Date of Service: 09/07/18 1432 Report #: [id number] MV E Max Kenneth.: 1.23 m/s MV PHT: 75.11 ms MVA (PHT): 2.93 cm2 TDI E/Lateral E': 10.25 E/Medial E': 17.57 Medial E' Kenneth.: 0.07 m/s Lateral E' Kenneth.: 0.12 m/s Pulmonary Valve PV Peak Kenneth.: 1.14 m/s PV Peak Gr.: 5.22 mmHg Tricuspid Valve RAP Estimate: 5.00 mmHg TR Peak Gr.: 21.80 mmHg RVSP: 26.00 mmHg PA Pressure: 26.00 mmHg Left Ventricle The left ventricle is normal size. There is normal LV segmental wall motion. Mild concentric left ventricular hypertrophy. Left ventricular systolic function is normal. LVEF is 55-60%. Grade II - pseudonormal filling dynamics. Right Ventricle The right ventricle is normal size. The right ventricular systolic function is normal. Atria The left atrium size is normal. The right atrium size is normal. Aortic Valve Mild aortic valve sclerosis. No aortic regurgitation is present. There is no aortic valvular stenosis. Mitral Valve The mitral valve is normal in structure. There is no mitral valve regurgitation noted. No evidence of mitral valve stenosis. Tricuspid Valve The tricuspid valve is normal in structure. Trace tricuspid regurgitation. Pulmonic Valve The pulmonary valve is normal in structure. Trace pulmonic [place] [address] 2 D/M-MODE ECHOCARDIOGRAM Name: ESE TRONCOSO Room: [address] IN [facility]#: [id number] Admission: 09/03/18 Attend Phys: Nathalie Baird, Discharge: Date of : 54 Date of Service: 09/07/18 1432 Report #: [id number] Great Vessels The aortic root is normal in size. IVC is normal in size and collapses >50% with inspiration. Pericardium There is no pericardial effusion. <Conclusion> The left ventricle is normal size. Mild concentric left ventricular hypertrophy. Left ventricular systolic function is normal. LVEF is 55-60%. Grade II - pseudonormal filling dynamics. Mild aortic valve sclerosis. Trace tricuspid regurgitation. IVC is normal in size and collapses >50% with inspiration. <ELECTRONICALLY SIGNED> By: Jovanny Hester MD, FACC 09/07/18 1432 1432 1432 Jovanny Hester MD, FACC /INF
--- NOTE | 2018-09-07 17:25 | NUR ---
PT ASSESSMENT CHARTED. LEVOPHED CURRENTLY OFF WITH BP 106/42. TWO EPISODES OF HYPOTENSION WHEN GETTING PATIENT UP TO CHAIR AND BEDSIDE COMMODE. 1ST EPISODE WAS WHEN PATIENT GOT UP TO THE CHAIR FOR BREAKFAST AND BECAME LETHARGIC AND DIAPHORETIC. SECOND TIME PATIENT UP TO BEDSIDE COMMODE AND BLOOD PRESSURE DROPPED BUT PATIENT WAS ALERT AND HAD NO SYMPTOMS. NO COMPLAINTS OF PAIN THROUGHOUT THE DAY. PT TOLERATING RENAL DIET WITHOUT DIFFICULTY. PT REMAINS ON 2L NC HIS O2 SATURATION DROPS WHEN HE FALLS ASLEEP. TRIVEDI REMOVED.
[2018-09-08] VITALS (37 sets, daily range): BP systolic 73–145; BP diastolic 38–66
--- NOTE | 2018-09-08 05:29 | NUR ---
PT SLOWLY PROGRESSING TOWARDS GOALS. REMAINS ON LEVO GTT @ 2MCG/HR TURNED ON LAST NIGHT AFTER BP MAP WAS CONSISTENTLY IN THE 50's. PT ABLE TO SLEEP MOST OF THE NIGHT. REMAINS ON 2L NC. PT WILL BE RECEIVING DIALYSIS THIS A.M. PT STATED HIS BP ALWAYS RUN LOW THIS IS NOT ABNORMAL FOR HIM, HE IS ASYMPTOMATIC, DENIES PAIN, N&V. NO CURRENT CONCERNS AT THIS TIME. WILL CONTINUE TO MONITOR.
[2018-09-08 06:58] LABS: HEMATOCRIT 25.6 % (42.0-52.0); HEMOGLOBIN 8.7 gm/dL (14.0-18.0); MCH 33.2 pg (26.0-34.0); MCHC 33.9 g/dL (28.0-37.0); MCV 97.9 fL (80.0-100.0); MPV 8.5 fl. (7.2-11.1); RBC 2.62 mil/uL (4.50-6.00); RDW-CV 15.8 % (10.5-14.5); WBC 4.1 thou/uL (4.0-11.0)
[2018-09-08 07:07] LABS: CALCIUM 8.3 mg/dL (8.5-10.1); POTASSIUM 3.9 mmol/L (3.5-5.1)
[2018-09-08 07:08] LABS: CREATININE 5.9 mg/dL (0.6-1.3)
[2018-09-08 09:02] LABS: APTT 33.1 Seconds (25.0-31.3); INR 0.9; PROTIME 9.7 Seconds (9.20-11.50)
--- NOTE | 2018-09-08 10:15 | NUR ---
PT EXTUBATED TWO DAYS AGO, REMAINS ON LEVO GTT. ON DIALYSIS NOW. PT PLANS ON RETURNING HOME WITH AT DISCHARGE. CASE MGT TO CONTINUE TO FOLLOW.
--- NOTE | 2018-09-08 11:56 | NUR ---
ORTHOSTATIC B/P. LAYING 120/61, SITTING 96/48, STANDING 73/38, BACK TO SITTING 94/40
--- NOTE | 2018-09-08 17:38 | NUR ---
09/08 Days: Midodrine started. Levo off at 1400. B/P soft but maintaining while in bed. B/P dropped again in the afternoon to 77/40 while in the chair with PT, however, patient reports asymptomatic and rebounded after being placed in bed. Good appetite and oral intake. Walked with PT. Plan on downgrade once B/P are a little more stabilized on midodrine.
[2018-09-09] VITALS (26 sets, daily range): BP systolic 92–157; BP diastolic 33–123
[2018-09-09 03:10] LABS: ABSOLUTE EOSINOPHILS 0.1 thou/uL (0.0-0.7); ABSOLUTE LYMPHOCYTES 0.4 thou/uL (0.8-5.3); ABSOLUTE MONOCYTES 0.4 thou/uL (0.0-1.2); ABSOLUTE NEUTROPHILS 1.6 thou/uL (1.6-8.1); BASOPHILS 0.9 %; EOSINOPHILS 4.1 %; HEMATOCRIT 25.1 % (42.0-52.0); HEMOGLOBIN 8.5 gm/dL (14.0-18.0); LYMPHOCYTES 16.1 %; MCH 33.5 pg (26.0-34.0); MCV 98.5 fL (80.0-100.0); MONOCYTES 16.3 %; MPV 8.2 fl. (7.2-11.1); NUCLEATED RBCS 0 /100WBC; PLATELET COUNT* 93 thou/uL (150-400); POLYS 62.6 %; RBC 2.55 mil/uL (4.50-6.00); RDW-CV 15.9 % (10.5-14.5); WBC 2.6 thou/uL (4.0-11.0)
--- NOTE | 2018-09-09 06:47 | NUR ---
ASSESSMENT CHARTED. PATIENT SLEPT DURING MAJORITY OF SHIFT. PASSED BM IN AM BEFORE SHIFT CHANGE. PATIENT EXPRESSED DESIRE TO DISCHARGE TO HOME TODAY. PATIENT CONTINUES TO IMPROVE. NO SIGNIFICANT CHANGES DURING SHIFT.
[2018-09-09] MEDS ORDERED: ASPIR 8181 MG PO (08:33)
[2018-09-09] MEDS ORDERED: MIDODRINE HCL 55 M1 PO (08:47)
[2018-09-09 12:53] LABS: % SATURATION 60 % (20-39); IRON 107 ug/dL (50-175)
--- NOTE | 2018-09-09 14:14 | NUR ---
PT TRANSFERRED FROM ICU. TRACING SR ON MONITOR. AGREE WITH PREVIOUS NURSE ASSESSMENT. ORIENTED TO ROOM, CLWR.
--- NOTE | 2018-09-09 14:44 | NUR ---
09/09 Days: Patient awaiting stress test on Tuesday per Cardiology before discharge home. Patient agreeing at this time to stay until then. Continues to be asymptomatic. Card's increase Midodrine to 10mg TID to assist with the orthostatic hypotension. Diet and appetite fair. Mobility increased with only stand-by assist with cords. Patient downgraded to Tele and moved to room 228 around 1415
[2018-09-10] VITALS (9 sets, daily range): BP systolic 131–174; BP diastolic 52–81
--- NOTE | 2018-09-10 06:33 | NUR ---
PATIENT PROGRESSING TOWARDS GOALS: VSS ON ROOM AIR. PATIENT UP INDEPENDENTLY WITH NO C/O DIZZINESS OR COMPLICATIONS. PATIENT HAD ABDOMINAL CT SCAN WITHOUT CONTRAST, REFER TO RESULTS. PATIENT TO HAVE STRESS TEST ON TUESDAY. CALL LIGHT WITHIN REACH
--- NOTE | 2018-09-10 12:00 | NUR ---
ASSUMED PT CARE AT 0730. AOX4, UP AD SOLIS. O2 SAT AT 90'S RA. TRACING SR ON BUTTONER. PT COMPLAINS OF BACK PAIN. PT FOR ACCU CHECK. PT HAS R ARM FISTULA. PT FOR DIALYSIS (MWF). PT HAS TRIPLE LUMEN. PT ORTHOSTATIC BP CHECKED. PT IS OLIGURIC. VSS, AM ASSESSMENT CHARTED. MEDS GIVEN PER MAR. CALL LIGHT WITHIN REACH. WILL CONTINUE TO MONITOR.
--- NOTE | 2018-09-10 18:15 | NUR ---
PT STILL SR ON TELE. FOR ACCU CHECK. PT COMPLAINS OF BACK PAIN, PAIN MEDS GIVEN. PT FOR POSSIBLE STRESS TEST TOMORROW. PT ORTHOSTATIC BP CHECK. VSS, ASSESSMENT CHARTED. ALL NEEDS MET AT THIS TIME. WILL CONTINUE TO MONITOR.
[2018-09-11] VITALS: BP 155/67
[2018-09-11 04:00] VITALS: BP 145/60
--- NOTE | 2018-09-11 07:20 | NUR ---
ASSUMED PT CARE AT APPROX 1930. PT IS AWAKE AND ORIENTED X4. VSS ON ROOM AIR. PROOF CLERK IN PLACE TRACING SR. ASSESSMENT DONE AND CHARTED. PT C/O BACK PAIN AND URETHRAL PAIN PARTIALLY RELIEVED BY TRAMADOL AND NORCO GIVEN PER JUN. PT IS FOR STRESS TEST THIS AM. ADVISED TO HAVE NOTHING PER [facility] POST MIDNIGHT. PT WAS ABLE TO SLEEP MOST OF THE NIGHT. HOURLY ROUNDING DONE FOR PT SAFETY. CALL LIGHT WITHIN REACH.
[2018-09-11 08:00] VITALS: BP 155/70
[2018-09-11 11:10] LABS: IgG 826 mg/dL (700-1600); IgM 10 mg/dL (20-172)
--- NOTE | 2018-09-11 12:52 | NUR ---
ASSUMED PT CARE AT 0730, AOX4, UP AD SOLIS. DENIES ANY PAIN. TRACING SR ON PRECISION AGRICULTURE SPECIALIST PT FOR DIALYSIS. FOR STRESS TEST. NPO MIDNIGHT. PT ABDOMEN SOFT AND ROUND. BM TODAY. LUNG SOUND CLEAR. PT FOR ACCU CHECK. VSS, AM ASSESSMENT CHARTED. CALL LIGHT WITHIN REACH. WILL CONTINUE TO MONITOR
--- NOTE | 2018-09-11 16:31 | CON ---
[address] [address] CONSULTATION Name: ESE TRONCOSO Room: [address] IN .R.#: [id number] Admission: 09/03/18 Attend Phys: Nathalie Baird MD Discharge: Date of : 54 Report #: [id number] THIS REPORT FOR: //name// CC: Nathalie Dasilva DATE OF SERVICE: 09/04/2018 HISTORY OF PRESENT ILLNESS: This is a 67-year-old male patient who was evaluated by me to prognosticate the patient from the cardiac arrest. I reviewed the patient's record and it looks like this patient came to the Emergency Room with a potassium of 7.3. He had a cardiopulmonary arrest and presently he is on cooling protocol. In fact, the patient arrested twice. Presently, he is on multiple sedations including fentanyl. REVIEW OF SYSTEMS: Positive for end-stage renal disease, pneumonia, cardiac arrest, depression and diabetes. A 14-point review of system was attempted and this was the patient's relevant 14-point review of system. PAST MEDICAL HISTORY: Positive for end-stage renal disease. FAMILY HISTORY: Unavailable. SOCIAL HISTORY: From the record and it looks like the patient does not smoke. PHYSICAL EXAMINATION: The patient's examination is limited. NEUROLOGICAL: He is sedated. He does not have any response. His pupils are small and nonreactive, but he is on fentanyl. His reflexes are absent. That is all the examination, which is possible. GENERAL: He appeared to be reasonably well-developed individual. VITAL SIGNS: His blood pressure is 161/65, respiration is 17, pulse is 59 and temperature is 94.1. LABORATORY DATA: Indicate a white count of 4.1. His potassium is 3.6 now. RADIOLOGICAL DATA: He did have a CT scan of the head, which was reviewed. That does not show any acute abnormality. IMPRESSION AND PLAN: The patient is sedated at the moment. It is not possible to prognosticate him at this time. We will get an electroencephalogram done once the patient is warmed up and do further testing to prognosticate the patient. We will talk to the family and discuss the patient with you. <ELECTRONICALLY SIGNED> By: Deshawn Bower MD 09/11/18 1631 1219 [id number] Bower MD /nt
--- NOTE | 2018-09-11 16:31 | EEG ---
[address] [address] EEG STUDY REPORT Name: ESE TRONCOSO Room: [address] IN [facility]#: [id number] Admission: 09/03/18 Attend Phys: Nathalie Baird MD Discharge: Date of : 54 Report #: [id number] THIS REPORT FOR: //name// CC: Nathalie Dasilva DATE OF SERVICE: 09/07/2018 This patient is being evaluated post-cardiac arrest. EEG was done by placing the electrodes by standard 10-20 system of electrode placement. Moderate amount of artifact is present. Both sequential and referential montages were used. Background activity is about 9 Hz and 30 microvolt. The patient became drowsy that is associated with bilateral slowing. No active epileptiform activity was noticed. IMPRESSION: This patient's EEG does not demonstrate any active epileptiform activity. EEG does intermixed mild theta range slowing, which is nonspecific and can occur with drowsiness, effect of psychotropic medication, mild encephalopathy, etc. Finding is mild and most of the EEG looks reasonably well formed. <ELECTRONICALLY SIGNED> By: Deshawn Bower MD 09/11/18 1631 1411 [id number] Bower MD /nt
[2018-09-11 16:55] VITALS: BP 111/45
[2018-09-11] MEDS ORDERED: MIDODRINE HCL 55 M1 PO ×2 (17:04→17:08)
--- NOTE | 2018-09-11 17:28 | CARDNUC ---
[place] [address] CARDIAC NUCLEAR IMAGING REPORT Name: ESE TRONCOSO Room: [address] IN [facility]#: [id number] Admission: 09/03/18 Attend Phys: Nathalie Baird, Discharge: Date of : 54 Date of Service: 09/11/18 1728 Report #: [id number] THIS REPORT FOR: //name// APPROVED REPORT Study performed: 09/09/2018 10:08:00 Indication: s/p Cardiac Arrest/PEA, Syncope, elevated troponins, hyperkalemia. Patient Location: In-Patient Room #: 228 Stress Tech: Sara Cavanaugh Stress Nurse: Ilene Cool RN Ht: 5 ft 10 in Wt: 172 lbs BSA: 1.96 m2 BMI: 24.67 Medical History Medical History: Angina, CAD s/p [place], CAD s/p CABG, CKD, Diabetes, Fatigue, Former Smoker, HTN, Weakness, Cardiac Arrest/PEA, Hyperkalemia, Dialysis, Syncope. Medications: ASA 325 mg, Midodrine, Insulin, Heparin, Home med - Hydralazine. Allergies: Penicillins Cardiac Risk Factors: Age, Diabetes (insulin), FHX of CAD, HTN, Past Smoker, ESRD/Dialysis, Hyperkalemia. Previous Cardiac Procedures: Myocardial infarction, CABG Pretest Chest Pain Characteristics: No chest pain Exercise History: Sedentary Physical Disabilities: ESRD/Dialysis, weakness/fatigue, unstable gait, s/p Cardiac Arrest/PEA. Meds Held (24 hrs): None Resting Data Rest SPECT myocardial perfusion imaging was performed in supine position 30 minutes following the intravenous injection of 10.2 mCi of Tc-99m Sestamibi. Time of rest injection: 13:10 The images were gated to evaluate regional wall motion and calculate left ventricular ejection fraction. Administration Route: IV Administration Site: Other Pharmacologic Stress Pharmacologic stress test was performed by injecting Regadenoson 0.4 [place] [address] CARDIAC NUCLEAR IMAGING REPORT Name: ESE TRONCOSO Room: [address]#: [id number] Admission: 09/03/18 Attend Phys: Nathalie Baird, Discharge: Date of : 54 Date of Service: 09/11/18 1728 Report #: [id number] IV push over 10-15 seconds immediately followed by the intravenous injection of 29.0 mCi of Tc-99m Sestamibi. Time of stress injection: 14;35 Administration Route: IV Administration Site: Other Heart Rate at time of stress injection: 89 bpm. Gated Stress SPECT was performed 40 minutes after stress injection. The images were gated to evaluate regional wall motion and calculate left ventricular ejection fraction. Prone imaging was performed. Stress Test Details Stress Test: Pharmacologic stress testing performed using 0.4 mg of regadenoson per 5 mL given IV over 10 seconds. Reason for pharmacologic stress test: physical limitation, ESRD/Dialysis, weakness/fatigue, s/p Cardiac Arrest/PEA.. HR Max Heart Rate (APMHR): 155 bpm Resting HR: 78 bpm Target HR (85% APMHR): 131 bpm Max HR Achieved: 89 bpm % of APMHR: 57 Recovery HR: 88 bpm BP Resting BP: 139/63 mmHg Max BP: 89/43 mmHg Recovery BP: 111/48 mmHg ECG Resting ECG: Sinus Rhythm, nonspecific ST-T abnormalities Stress ECG: Sinus Rhythm, nonspecific ST-T abnormalities ST Change: None Arrhythmia: None Recovery ECG: Sinus Rhythm, nonspecific ST-T abnormalities Recovery ST Change: None Recovery Arrhythmia: None Clinical Reason for Termination: Completed protocol Stress Symptoms: Abdominal discomfort, Tingling in feet. Exercise duration: 0 min 0 sec Exercise capacity: 1.00 METs The patient tolerated Lexiscan infusion [place] [address] CARDIAC NUCLEAR IMAGING REPORT Name: ESE TRONCOSO Room: [address]#: [id number] Admission: 09/03/18 Attend Phys: Nathalie Baird, Discharge: Date of : 54 Date of Service: 09/11/18 1728 Report #: [id number] Nurse Comments 67 year old male inpatient, hospitalized for recent Cardiac Arrest/PEA presented for Lexiscan stress test after Dialysis treatment. Patient tolerated sitting Lexiscan well. Recovery unremarkable with PO caffeine. Patient escorted via wheelchair by staff to Nuclear Medicine for images. Patient was stable with no complaints at that time. Stress ECG Conclusion The baseline 12-lead EKG showed sinus rhythm and nonspecific ST segment depression and T-wave inversion. EKGs obtained during and post Lexiscan infusion showed no significant ST or T wave changes when compared to baseline. There were no stress-induced arrhythmias. Study Quality Study: Good Artifact: No artifact Study Data At rest, the left ventricular ejection fraction was 74%.. Post stress, the left ventricular ejection was 70%.. TID = 1.18. Perfusion Normal left ventricular perfusion. Wall Motion there is a septal wall motion abnormality noted prior bypass procedure. Global LV systolic function is fairly well-preserved. Nuclear Conclusion ECG Findings: non-diagnostic Clinical Findings: negative for ischemia Nuclear Findings: negative for ischemia Exercise Capacity: not assessed Left Ventricular Function: preserved Risk Study: low Myocardial perfusion images show no defect to suggest infarct or ischemia. Left ventricular systolic function is fairly well-preserved. There is a septal wall motion abnormality noted consistent with prior bypass procedure. This is a low risk study. <Conclusion> [place] [address] CARDIAC NUCLEAR IMAGING REPORT Name: ESE TRNOCOSO Room: [address]#: [id number] Admission: 09/03/18 Attend Phys: Nathalie Baird, Discharge: Date of : 54 Date of Service: 09/11/18 1728 Report #: [id number] The baseline 12-lead EKG showed sinus rhythm and nonspecific ST segment depression and T-wave inversion. EKGs obtained during and post Lexiscan infusion showed no significant ST or T wave changes when compared to baseline. There were no stress-induced arrhythmias. <ELECTRONICALLY SIGNED> By: Jovanny Hester MD, FACC 09/11/18 1728 27 27 Jovanny Hester MD, FACC /INF
--- NOTE | 2018-09-11 18:00 | NUR ---
PT DISCHARGE PLAN DISCUSSED WITH THE PATIENT. MEDICATION SCRIPT/PACKET GIVEN. TRIPLE LUMEN CENTRAL LINE REMOVED. TELE REMOVED. ALL BELONGINGS PACKED AND CHECKED. LEFT THE UNIT WITH VIA WHEELCHAIR.
--- NOTE | 2018-09-12 08:35 | CON ---
[address] [address] CONSULTATION Name: ESE TRONCOSO Room: [address]#: [id number] Admission: 09/03/18 Attend Phys: Nathalie Baird MD Discharge: 09/11/18 Date of : 54 Report #: [id number] THIS REPORT FOR: //name// CC: Nathalie Dasilva DATE OF SERVICE: 09/04/2018 CONSULTING PHYSICIAN: Dr. Baird REASON FOR NEPHROLOGY CONSULTATION: End-stage renal disease and hyperkalemia. REASON FOR ADMISSION: Headache and syncopal episode at home. HISTORY OF PRESENT ILLNESS: This is a 67-year-old male with a past medical history of non-insulin dependent diabetes mellitus, hypertension, end-stage renal disease on hemodialysis every Tuesday, Tuesday and Tuesday, last dialysis was on Tuesday, who was brought in after he had had a syncopal episode at home. The patient was complaining of headache initially and then he was sitting up in a chair, but then fell to the ground. His blood glucose was normal. The patient was able to wake up and he was oriented and brought to the Emergency Room. Here in the Emergency Room, he got up to have a bowel movement and then he had a PEA arrest x 2. His potassium was found to be 7.3. Recently, he has started taking a new medication, [id number] medication for chronic diarrhea and has been started on hydralazine. The patient is currently intubated, sedated, on one pressor, but blood pressure has much improved. He is currently on hypothermia protocol. He was dialyzed last night without any fluid removal for 3 hours and his potassium has come down to 3.6 this morning. He is stable on the vent on 40% FiO2. As per the patient's , the patient is very compliant with his diet. He did have a banana, but that was a couple of days ago and went for his regular dialysis on Tuesday. He does not make much urine. ALLERGIES: PENICILLIN. REVIEW OF SYSTEMS: Cannot obtain because he is intubated and sedated. PAST MEDICAL AND SURGICAL HISTORY: Which includes non-insulin dependent diabetes mellitus, pneumonia, depression, end-stage renal disease on hemodialysis; hypertension and hemodialysis on every Tuesday, Tuesday and Tuesday. HOME MEDICATIONS: Which include allopurinol, folic acid, fish oil, levothyroxine, pantoprazole, clonazepam, cholecalciferol, vitamin B12, diazepam, lanthanum, ropinirole, calcium carbonate, sertraline and hydralazine [place] [address] CONSULTATION Name: ESE TRONCOSO Room: [address]#: [id number] Admission: 09/03/18 Attend Phys: Nathalie Baird MD Discharge: 09/11/18 Date of : 54 Report #: [id number] FAMILY HISTORY: Noncontributory in this setting. SOCIAL HISTORY: Lives at home with his . He does not smoke or take alcohol or use illicit drugs. PHYSICAL EXAMINATION: VITAL SIGNS: Blood pressure was 196/98, temperature was 31, pulse rate was 67, respiratory rate was 16 and pulse ox was 100% on 40% FiO2. GENERAL: He is intubated and sedated status. HEAD AND EYES: Normal conjunctivae. Atraumatic and normocephalic. EARS, NOSE AND THROAT: ET tube in place. NECK: No JVD. CHEST: Bilateral diminished breath sounds anteriorly, but no crackles or wheezing heard anteriorly. CARDIOVASCULAR: S1 and S2 normal. No murmurs heard. ABDOMEN: Soft and nondistended. Bowel sounds are diminished. EXTREMITIES: There is no lower extremity edema. DIALYSIS ACCESS: He has a right arm AV fistula with good bruit and thrill. NEUROLOGIC FUNCTION: He is currently sedated. PSYCHIATRIC: I cannot assess right now. LABORATORY DATA: Hemoglobin is 9.2, WBC 4.9 and platelet count is 71,000. Potassium 3.6 this morning came down from 7.3. Sodium is 137. CO2 is 27. Blood gas was pH was 7.104, pCO2 of 50.7, pO2 113 and HCO3 15.5. Other labs are reviewed. IMAGING: Head CT, chest x-ray and abdominal x-ray were reviewed. ASSESSMENT: 1. End-stage renal disease on hemodialysis on Tuesday, Tuesday and Tuesday. 2. Cardiopulmonary arrest, PEA arrest could have been secondary to hyperkalemia. Currently on hypothermia protocol. 3. Diabetes type 2, Internal Medicine is managing. 4. Hypertension. Currently, he is on pressors, status post cardiopulmonary arrest. 5. Possible small bowel obstruction based upon abdominal x-ray finding. 6. Thrombocytopenia. Platelet count is down from 103,000 to 71,000. Primary team is managing. 7. Anemia of chronic kidney disease. PLAN: 1. The patient was dialyzed last night for 3 hours and his potassium is normalized. There is no acute need for dialysis today, although his chest x-ray does look wet, but he is stable on 40% FiO2 on the ventilator. 2. We will continue to follow along with you. There is no acute need for dialysis today. [address] [address] CONSULTATION Name: ESE TRONCOSO Room: [address]#: [id number] Admission: 09/03/18 Attend Phys: Nathalie Baird MD Discharge: 09/11/18 Date of : 54 Report #: [id number] 3. Discussed with the patient's family and the patient's nurse. We will continue to follow along with you. <ELECTRONICALLY SIGNED> By: Yeimi Carlos MD 09/12/18 0835 [id number] [id number] Carlos MD /nt
[2018-09-14 18:08] LABS: GLOBULIN TOTAL 2.3 g/dL (2.2-3.9); M-SPIKE Not Observed g/dL (Not Observed)
== END 2018-09-11 18:28 | disposition home or self-care (01) | DRG 208 ==
LOC: M.ERS 21:01 → M.ICU 22:09 → M.TBA-ER 22:09 → M.ICU 22:20 → M.2W 09-09 14:10
PROVIDERS: Family Medicine; Internal Medicine; Internal Medicine Critical Care Medicine; Internal Medicine Hematology & Oncology; Internal Medicine Nephrology; Internal Medicine Pulmonary Disease; ADMIT Internal Medicine
DX: J69.0 Pneumonitis due to inhalation of food and vomit (principal); N18.6 End stage renal disease; I46.9 Cardiac arrest, cause unspecified; I21.A1 Myocardial infarction type 2; J96.02 Acute respiratory failure with hypercapnia; D65 Disseminated intravascular coagulation [defibrination syndrome]; I12.0 Hypertensive chronic kidney disease with stage 5 chronic kidney disease or end stage renal disease; R57.9 Shock, unspecified; I25.10 Atherosclerotic heart disease of native coronary artery without angina pectoris; D63.1 Anemia in chronic kidney disease; E03.9 Hypothyroidism, unspecified; R16.1 Splenomegaly, not elsewhere classified; M10.9 Gout, unspecified; R68.0 Hypothermia, not associated with low environmental temperature; E11.22 Type 2 diabetes mellitus with diabetic chronic kidney disease; K52.9 Noninfective gastroenteritis and colitis, unspecified; E87.5 Hyperkalemia; F32.9 Major depressive disorder, single episode, unspecified; Z99.2 Dependence on renal dialysis; Z88.0 Allergy status to penicillin; Z95.1 Presence of aortocoronary bypass graft; Z90.49 Acquired absence of other specified parts of digestive tract; Z82.3 Family history of stroke

== ENCOUNTER 2018-09-16 13:52 | Inpatient (IN) | payer MEDICARE, OTHER ==
[~2018-09-16] VITALS: Ht 177.8 cm; Wt 73.8 kg
--- NOTE | ~2018-09-16 | CON ---
[address] [address] CONSULTATION Name: ESE TRONCOSO Room: [address] IN M.R.#: [id number] Admission: 09/16/18 Attend Phys: Nathalie Baird MD Discharge: Date of : 54 Report #: [id number] THIS REPORT FOR: //name// CC: Nathalie Dasilva REASON FOR CONSULTATION: This is a consultation obtained by Dr. Nathalie Baird for end-stage renal disease, providing management and confusion. HISTORY OF PRESENT ILLNESS: The patient has a history of end-stage renal disease. He is on hemodialysis at the [facility] under the care of Dr. Tripathi. The patient dialyzes on a Tuesday, Tuesday and Tuesday schedule. He was last dialyzed 2 days ago, had a full treatment. He recently has a history of a PEA arrest secondary to hyperkalemia. The patient was recently given a prescription for hydroxyzine. It is not really clear how much the patient has been taking, but from Dr. Baird's note, it appears the patient has been taking more than prescribed. The patient showed up to the ER very confused yesterday. He was put in the ICU for overnight observation. The nurses have reported that he was very somnolent overnight, though arousable. This morning, he appears more confused. His vitals have been stable. His labs were reviewed. His azotemic solutes do not seem to be excessively abnormal enough to explain his confusion. He has no hyperkalemia. He does have some hypercapnia, though that is well compensated. PAST MEDICAL HISTORY: End-stage renal disease, on hemodialysis; anemia; coronary artery disease; type 2 diabetes; recent PEA arrest because of hyperkalemia; history of pneumonia; syncope and this admission, confusion. ALLERGIES: PENICILLIN. PERSONAL, SOCIAL AND FAMILY HISTORY: Reviewed. He denies smoking. No family history of ESRD. Family not available at this moment for discussion. PHYSICAL EXAMINATION: GENERAL: On my examination, the patient is arousable, but confused. VITAL SIGNS: Blood pressure 117/56, pulse of 75. He is afebrile. LUNGS: Diminished, but clear. HEART: Regular, S1 and S2. ABDOMEN: Soft. EXTREMITIES: He has a right upper arm brachiobasilic transposed fistula. No lower extremity edema. LABORATORY DATA: White count 4, hemoglobin 10.2 and platelets are 86,000. Blood gas on admission yesterday, pH of 7.4, pCO2 of 54, pO2 of 60 and bicarbonate of 32. BUN 32, creatinine 5.3, potassium 4.6 and calcium 8.3. IMAGING STUDIES: CT of the head was performed [place] [address] CONSULTATION Name: ESE TRONCOSO Room: [address]#: [id number] Admission: 09/16/18 Attend Phys: Nathalie Baird MD Discharge: Date of : 54 Report #: [id number] hemorrhage or extra-axial fluid collections were reported. No acute intracranial abnormalities reported. ASSESSMENT AND PLAN: 1. End-stage renal disease. 2. Altered mental status. 3. Recent prescription of hydroxyzine, not sure if the patient was over medicating with that. 4. Hypercapnia, hypoxemia. 5. Anemia. 6. History of coronary artery disease. 7. History of type 2 diabetes. PLAN: 1. End-stage renal disease. The patient did receive a full treatment 2 days ago. 2. Confusion, not sure if this is medication related. We will dialyze the patient today for 3 hours and see if that hopefully dialyzes the drug off and restores his mental status. 3. Hypercapnia needs to be addressed. The patient also was hypoxemic. Repeat ABG this morning and follow based on the results. We will inquire from the patient's family if the patient uses a CPAP at home. Thank you for the consultation. By: [id number] Temple MD /manuel
--- NOTE | ~2018-09-16 | EEG ---
[address] [address] EEG STUDY REPORT Name: ESE TRONCOSO Room: [address] IN .#: [id number] Admission: 09/16/18 Attend Phys: Nathalie Baird MD Discharge: Date of : 54 Report #: [id number] THIS REPORT FOR: //name// CC: Nathalie Dasilva DATE OF SERVICE: 09/18/2018 This patient's EEG is being evaluated for altered mental status. EEG was done by placing the electrode by standard 10-20 system of electrode placement. Both referential and sequential montages were used for recording. Background activity in this patient's EEG goes to about 9 Hz and 30 microvolts. The patient goes to sleep and that was associated with bilateral slowing and vertex sharp waves. Photic stimulation was unremarkable. Throughout the record, no active epileptiform activity was noticed. IMPRESSION: This patient's EEG is intermixed with theta range slowing on both sides. That is a nonspecific abnormality, which can occur with encephalopathy, effect of psychotropic medication, dementia, etc. Clinical correlation is recommended. By: [id number] Jones MD /nt
[~2018-09-16 13:52] MED LIST changes: +ALLOPURINOL 10100 M2 PO; +ASPIR 8181 MG PO; +B12INJ IM; +FOSRENOL500 MG PO; +HYDRALAZINE 10M10 MG PO; +KLONOPIN0.5 MG PO; +LANTHANUM CAR1000 MG PO; +MIDODRINE HCL 55 M1 PO; +ROPINIROLE HCL0.5 MG PO; +TUMS PO; +VALIUM5 MG PO; +VITAMIN D2000 UNIT PO; +ZOLOFT50 MG PO
[2018-09-16 14:39] LABS: ABSOLUTE EOSINOPHILS 0.1 thou/uL (0.0-0.7); ABSOLUTE LYMPHOCYTES 0.5 thou/uL (0.8-5.3); ABSOLUTE MONOCYTES 0.6 thou/uL (0.0-1.2); ABSOLUTE NEUTROPHILS 4.4 thou/uL (1.6-8.1); BASOPHILS 0.8 %; EOSINOPHILS 1.5 %; HEMATOCRIT 33.1 % (42.0-52.0); HEMOGLOBIN 10.9 gm/dL (14.0-18.0); LYMPHOCYTES 8.3 %; MCH 32.6 pg (26.0-34.0); MCV 98.8 fL (80.0-100.0); MONOCYTES 11.1 %; MPV 7.4 fl. (7.2-11.1); NUCLEATED RBCS 0 /100WBC; PLATELET COUNT* 91 thou/uL (150-400); POLYS 78.3 %; RBC 3.34 mil/uL (4.50-6.00); RDW-CV 15.8 % (10.5-14.5); WBC 5.7 thou/uL (4.0-11.0)
[2018-09-16 14:52] LABS: APTT 28.2 Seconds (25.0-31.3); PROTIME 10.5 Seconds (9.20-11.50)
[2018-09-16 14:54] LABS: ANION GAP 8 mmol/L (7-16); BUN 23 mg/dL (7-18); CALCIUM 8.6 mg/dL (8.5-10.1); CHLORIDE 101 mmol/L (98-107); CO2 33 mmol/L (21-32); CREATININE 4.4 mg/dL (0.6-1.3); GLUCOSE 149 mg/dL (70-99); POTASSIUM 4.5 mmol/L (3.5-5.1); SODIUM 142 mmol/L (136-145)
[2018-09-16 15:04] LABS: ALBUMIN 2.5 g/dL (3.4-5.0); ALKALINE PHOSPHATASE 345 U/L (46-116); NT-PRO BRAIN NAT PEPTIDE > 35000 pg/mL (<300); SGOT 48 U/L (15-37); SGPT 45 U/L (30-65); TOTAL BILIRUBIN 0.8 mg/dL (<0.1-1.0); TOTAL PROTEIN 6.2 g/dL (6.4-8.2); TROPONIN-I LEVEL <0.06 ng/mL (<0.06)
[2018-09-16 15:30] LABS: CK-MB MASS 0.9 ng/mL (<0.5-3.6)
[2018-09-16 17:40] LABS: BE 6.2 mmol/L (-2 to +3); pH 7.399 (7.340-7.450)
[2018-09-16 17:43] LABS: PCO2 53.6 mmHg (35.0-45.0); PO2 59.6 mmHg (75.0-100.0)
[2018-09-16 19:23] VITALS: BP 158/70
[2018-09-16 20:26] VITALS: BP 132/58
[2018-09-16 20:43] VITALS: BP 181/83
[2018-09-16 21:00] VITALS: BP 183/81
[2018-09-16 22:00] VITALS: BP 175/77
[2018-09-16 23:00] VITALS: BP 159/66
[2018-09-17] VITALS (23 sets, daily range): BP systolic 97–163; BP diastolic 42–78
[2018-09-17 04:21] LABS: HEMATOCRIT 30.8 % (42.0-52.0); HEMOGLOBIN 10.2 gm/dL (14.0-18.0); MCH 32.5 pg (26.0-34.0); MCHC 33.1 g/dL (28.0-37.0); MCV 98.3 fL (80.0-100.0); MPV 7.1 fl. (7.2-11.1); RBC 3.13 mil/uL (4.50-6.00); RDW-CV 15.7 % (10.5-14.5)
[2018-09-17 04:35] LABS: CALCIUM 8.3 mg/dL (8.5-10.1); CREATININE 5.3 mg/dL (0.6-1.3); MAGNESIUM 2.1 mg/dL (1.8-2.4); POTASSIUM 4.6 mmol/L (3.5-5.1)
--- NOTE | 2018-09-17 06:28 | NUR ---
ADMITTED TO ICU BED 5 AT 2034, SEE ASSESSMENTS. UPON ADMIT PT WAS SOMNOLENT AND AROUSABLE ONLY TO PAINFUL STIMULI, ORIENTED TO PERSON ONLY. IMPROVEMENT THROUGH THE NIGHT, PT NOW ROUSES TO LIGHT VERBAL OR TACTILE STIMULI, ORIENTED TO PERSON AND PLACE AND CAN HOLD CONVERSATION THOUGH DROWSY. MULTIPLE SCABBED ABRASIONS TO BUE AND BLE, ALL PHOTOGRAPHED AND PLACED IN CHART. UNABLE TO ADMINISTER HS MEDS DUE TO SOMNOLENCE. BED ALARM ON. CALL LIGHT WITHIN REACH.
--- NOTE | 2018-09-17 06:47 | NUR ---
AWOKE PT AT THIS TIME TO GIVE AM SYNTHROID. PT NOW LESS RESPONSIVE, WILL NOT OPEN EYES OR FOLLOW COMMAND. PT RESPONDS TO ALL QUESTIONS "WHAT ARE YOU DOING, MOM?" MOVING ALL EXTREMITIES, PERRLA.
[2018-09-17 08:50] LABS: BE 4.5 mmol/L (-2 to +3)
[2018-09-17 08:52] LABS: PCO2 51.4 mmHg (35.0-45.0); PO2 135.5 mmHg (75.0-100.0)
--- NOTE | 2018-09-17 17:15 | NUR ---
PT CARE ASSUMED AFTER REPORT. ASSESSMENTS COMPLETE. SR ON MONITOR. PT VERY LETHARGIC AND CONFUSED. PT ANSWERS QUESTIONS APPROPRIATLY AT TIMES. AT OTHER TIMES HE IS NOT MAKINS SENSE. PT PLACED ON BIPAP PER DR SHEPHERD ORDER. NEUROLOGY CONSULT PERFORMED BY DR LIPSCOMB. PT BECAME VERY AGITATED WITH THE BIAPAP MASK AND FORCED IT OFF OF HIS FACE AND RAISED HIS VOICE. PT AGIAN ATTEMPTED TO WEAR BIPAP BUT WAS UNABLE TO TOLERATE IT. O2 2L NC PLACED BACK ON PT. PT HAD DIALYSIS TODAY. 1L FLUID REMOVED PER [facility] NURSE REPORT. NO URINE OUTPUT REPORTED OR OBSERVED. DENIES PAIN. VISITED. DENIES PAIN. SLOW TO PROGRESS TOWARDS GOALS.
[2018-09-18] VITALS (10 sets, daily range): BP systolic 107–156; BP diastolic 31–64
--- NOTE | 2018-09-18 04:13 | NUR ---
PT AWAKE AND ALERT, REPORTED FEELING "SLEEPY. WHY AM I SLEEPING SO MUCH?" PT INFORMED OF EVENTS LEADING TO HOSPITALIZATION, VERBALIZED UNDERSTANDING. PT WAS ABLE TO STATE HIS NAME, THE YEAR, AND LOCATION. CONVERSATING APPROPRIATELY. PT DENIES PAIN, SOA, AND ANY OTHER DISCOMFORT. CALL LIGHT WITHIN REACH.
[2018-09-18 04:46] LABS: HEMATOCRIT 32.7 % (42.0-52.0); MCH 32.6 pg (26.0-34.0); MCHC 33.5 g/dL (28.0-37.0); MCV 97.4 fL (80.0-100.0); MPV 7.7 fl. (7.2-11.1); RBC 3.36 mil/uL (4.50-6.00); RDW-CV 15.1 % (10.5-14.5); WBC 4.2 thou/uL (4.0-11.0)
[2018-09-18 05:02] LABS: CALCIUM 8.6 mg/dL (8.5-10.1); POTASSIUM 4.5 mmol/L (3.5-5.1)
[2018-09-18 05:04] LABS: CREATININE 4.3 mg/dL (0.6-1.3)
--- NOTE | 2018-09-18 06:53 | NUR ---
PT REMAINS A/0 X4. BEDSIDE SWALLOW PERFORMED BY THIS RN, NO COUGHING OR OTHER SIGNS OF ASPIRATION. PO SYNTHROID GIVEN ORDERED. VSS. ALERT AND CONVERSATING APPROPRIATELY THIS AM. CALL LIGHT WITHIN REACH.
[2018-09-18 08:41] LABS: BE 2.2 mmol/L (-2 to +3); PCO2 44.8 mmHg (35.0-45.0); PO2 107.1 mmHg (75.0-100.0); pH 7.403 (7.340-7.450)
--- NOTE | 2018-09-18 09:31 | NUR ---
PT A/O X'S 4 THIS AM. TITRATED TO ROOM AIR AND OXYGEN SATURATION 96%. MIDODRINE HELD SYSTOLIC BP 150'S. PT STATES HE IS SEEING A MAN IN THE CORNER WHERE THERE IS NO MAN PRESENT. AT BEDSIDE. VSS. AFEBRILE. PT TALKING. PT TOLERATED RENAL DIET. MRI ORDERED. PER DR SHEPHERD, PT OKAY TO HAVE MRI TOMORROW. MRI QUESTIONAIR FILLED OUT WITH PT AND AND PLACED IN CHART. PT TELEMETRY STATUS. WILL CONTINUE PLAN OF CARE.
--- NOTE | 2018-09-18 12:29 | NUR ---
OFFERED FOR PT TO SIT IN CHAIR. PT DECLINED. PT CONFUSED AT TIMES. ABLE TO ANSWER ORIENTATION QUESTIONS. BED ALARM ON. PT ATTEMPTED TO GET OUT OF BED 1 TIME.
[2018-09-19] VITALS: BP 123/60
[2018-09-19 04:00] VITALS: BP 133/68
--- NOTE | 2018-09-19 06:55 | NUR ---
ASSUMED PT CARE AT 1930. ASSESSMENT COMPLETED CHARTED. ABLE TO MAKE NEEDS KNOWN. UP WITH 1 ASSIST R/T C/O DIZZINESS. DIALYSIS YESTERDAY, FISTULA BRUTE AND THRILL INTACT, NO C/O PAIN OR DISCOMFORT. PT RESTING IN BED MOST OF THE NIGHT BUT HASNT SLEPT ANY. WILL CONTINUE TO MONITOR.
[2018-09-19 08:00] VITALS: BP 146/65
[2018-09-19 11:59] VITALS: BP 144/68
[2018-09-19 12:10] VITALS: BP 144/68
--- NOTE | 2018-09-19 12:20 | NUR ---
CHINESE INSTRUCTOR SPOKE TO THE PATIENT TO DISCUSS HIS HOME SITUATION, DISCHARGE PLANNING, AND TO INFORM OF THE ROLE OF CM. PATIENT HAS RECENT HOSPITAL STAY (09/03-09/11). PATIENT ALERT, ORIENTED, INDEPENDENT AND ACTIVE. PATIENT INFORMS THAT [facility] , AND THAT HE DRIVES HIMSELF. PATIENT OWNS A WALKER, BUT DOES NOT USE IT. PATIENT RESIDES AT HOME WITH SPOUSE, SHE IS SUPPORTIVE, AND WORKS DURING THE DAY. D/C CRYPTOGRAPHY TEACHER INFORMED THAT THE PATIENT WILL D/C TODAY WITH HH. D/C CRYPTOGRAPHY TEACHER SPOKE TO THE PATIENT TO INFORM OF THIS. PATIENT ACCEPTS HH, AND HAS NO PREFERENCE ABOUT WHICH HH COMPANY. D/C CRYPTOGRAPHY TEACHER TO ARRANGE HH WITH [facility]. PATIENT IN AGREEMENT. D/C CRYPTOGRAPHY TEACHER ASSISTED THE PATIENT IN COMPLETING THE VENDOR CHOICE FORM, AND A COPY IS ON THE CHART. D/C CRYPTOGRAPHY TEACHER INFORMED [facility] OF THE HH REFERRAL, AND THAT PATIENT WILL D/C TODAY. CM WILL REMAIN AVAILABLE TO ASSIST AND FOLLOW NEEDED.
--- NOTE | 2018-09-19 12:57 | EKG ---
[place] [address] ELECTROCARDIOGRAM REPORT Name: ESE TRONCOSO Room: [place] [address] ADM IN [facility]#: [id number] Admission: 09/16/18 Attend Phys: Nathalie Baird MD Discharge: Date of : 54 Report #: [id number] THIS REPORT FOR: //name// [facility] ED Test Date: 2018-09-16 Test Time: 13:58:36 Pat Name: ESE OCONNORIERREZ Department: Room: [facility] Gender: M [employer] Program Coordinator: [place] : 1950 Requested By: Gabe Franklin Order Number: [id number] MD: Cecilio Mohr Measurements Intervals [place] Rate: 77 P: 45 MA: 149 QRS: 5 QRSD: 93 T: 166 QT: 434 QTc: 492 Interpretive Statements Sinus rhythm Probable left atrial enlargement LVH w/ repol abnormalities, possible ischemia Compared to ECG 09/03/2018 21:04:35 Possible ischemia still present Electronically Signed On 09-19-2018 12:57:35 CDT by Cecilio Mohr [email or web address] <ELECTRONICALLY SIGNED> By: Cecilio Mohr MD, FACC 09/19/18 1257 1358 1358 Cecilio Mohr MD, [facility] /EPI
[2018-09-19 14:57] VITALS: BP 144/68
--- NOTE | 2018-09-19 15:10 | NUR ---
pt left floor at 1510 accompanied by volunteer and . discharge instructions given. central line pulled out. pressure applied and dressing in intact.
--- NOTE | 2018-09-19 17:44 | NUR ---
PT. DISCHARGED HOME WITH HOME HEALTH PRIOR TO O.T. EVAL. PLEASE ORDER FURTHER O.T. SERVICES IF NEEDED.
--- NOTE | 2018-09-22 13:44 | NUR ---
CALL FROM JENNIFER/ AT [facility] CALLED AND REQUESTED DC SUMMARY FROM SEPTEMBER 03 STAY FOR PT. FAXED DC SUMMARY FROM SEPTEMBER 03 AND SEPTEMBER 16 STAY TO [phone]
== END 2018-09-19 15:09 | disposition home health service (06) | DRG 91 ==
LOC: M.ERS 13:52 → M.ICU 15:29 → M.TBA-ER 15:29 → M.2W 15:29 → M.ICU 20:35 → M.2W 09-18 19:20
PROVIDERS: Family Medicine; Internal Medicine Nephrology; ADMIT Internal Medicine
PROC: 02HV33Z Insertion of Infusion Device into Superior Vena Cava, Percutaneous Approach (ICD-10-PCS; principal; 2018-09-16)
PROC: 5A1D70Z Performance of Urinary Filtration, Intermittent, Less than 6 Hours Per Day (ICD-10-PCS; 2018-09-17)
PROC: 5A1D70Z Performance of Urinary Filtration, Intermittent, Less than 6 Hours Per Day (ICD-10-PCS; 2018-09-18)
DX: G92 Toxic encephalopathy (principal); N18.6 End stage renal disease; F32.9 Major depressive disorder, single episode, unspecified; I25.10 Atherosclerotic heart disease of native coronary artery without angina pectoris; D64.9 Anemia, unspecified; R06.89 Other abnormalities of breathing; F03.90 Unspecified dementia, unspecified severity, without behavioral disturbance, psychotic disturbance, mood disturbance, and anxiety; R09.02 Hypoxemia; E11.22 Type 2 diabetes mellitus with diabetic chronic kidney disease; Z99.2 Dependence on renal dialysis; Z88.0 Allergy status to penicillin; Z79.82 Long term (current) use of aspirin; Z83.3 Family history of diabetes mellitus; Z82.3 Family history of stroke